=== PATIENT | female | born 1985 | race Hispanic/Latino ===

== ENCOUNTER 2016-10-11 18:10 | Inpatient (IN) | payer MEDICAID, OTHER ==
[2016-10-11] MEDS ORDERED: Morphine 4 mg/ml ISec IVP STA (18:47)
[2016-10-11] MEDS ORDERED: Piperacillin/Tazobact 3.375 gm 100 ML IVPB STA (18:47)
[2016-10-11] MEDS ORDERED: Vancomycin 500 mg Inj IVPB STA (18:47)
[2016-10-11] MEDS ORDERED: Vancomycin 1.2 GM in Sodium Chloride 0.9% 250 ML IVPB STA (18:54)
--- NOTE | 2016-10-11 18:57 | ED PDOC ---
Arrival/HPI - General Chief Complaint: Abnormal Skin Integrity Time Seen by Provider: 10/11/16 18:46 Historian: Patient - History of Present Illness Narrative History of Present Illness (Text): 10/11/16 18:39 A 31 year old female, whose past medical history includes asthma and heroine use (13 years), presents to the emergency department complaining of a skin infection to the right arm at the site of injection. Patient reports 4 days ago she notices some swelling and redness and it has worsen since. Patient states it is painful for her to move the right elbow due to the swelling. She denies a fever, chest pain, shortness of breath, or other complaints at this time. Time/Duration: Other (4 days) Symptom Onset: Gradual Symptom Course: Worsening Quality: Other Activities at Onset: Rest Context: Home Past Medical History - Provider Review Nursing Documentation Reviewed: Yes - Infectious Disease Hx of Infectious Diseases: None - Tetanus Immunization Tetanus Immunization: Up to Date - Past Medical History Past Medical History: No Previous - Cardiac Hx Cardiac Disorders: No Hx Hypertension: No - Pulmonary Hx Asthma: Yes Hx Tuberculosis: No - Neurological HX Cerebrovascular Accident: No Hx Seizures: No - HEENT Hx HEENT Disorder: No - Renal Hx Renal Disorder: No - Endocrine/Metabolic Hx Endocrine Disorders: No - Hematological/Oncological Hx Cancer: No Other/Comment: IV HEROIN USER - Integumentary Other/Comment: Abscess on both hands; scattered/multiple IV drug salas - Musculoskeletal/Rheumatological Hx Falls: No - Gastrointestinal Hx Gastrointestinal Disorders: No - Genitourinary/Gynecological Hx Sexually Transmitted Diseases: No Hx Urinary Tract Infection: Yes - Psychiatric Hx Anxiety: Yes Hx Depression: Yes Hx Substance Use: Yes (IV HEROIN) - Past Surgical History Past Surgical History: No Previous - Surgical History Other/Comment: biopsy lymph nodes - Anesthesia Hx Anesthesia: No Hx Anesthesia Reactions: No Hx Malignant Hyperthermia: No - Suicidal Assessment Feels Threatened In Home Enviroment: No Family/Social History - Physician Review Nursing Documentation Reviewed: Yes Family/Social History: Unknown Family HX Smoking Status: Heavy Smoker > 10 Cigarettes Daily Hx Alcohol Use: No Hx Substance Use: Yes (IV HEROIN) Substance used: HEROIN, COCAINE Hx Substance Use Treatment: No Allergies/Home Meds Allergies/Adverse Reactions: Allergies No Known Allergies Allergy (Verified 10/11/16 18:32) Home Medications: Home Meds Medication Instructions Recorded Confirmed No Known Home Med 10/11/16 10/11/16 Review of Systems - Physician Review All systems were reviewed & negative as marked: Yes - Review of Systems Constitutional: absent: Fevers Respiratory: absent: SOB Cardiovascular: absent: Chest Pain Gastrointestinal: absent: Nausea, Vomiting Musculoskeletal: Other (right upper extremity swelling and pain) Physical Exam Vital Signs Reviewed: Yes Vital Signs Temp Pulse Resp BP Pulse Ox 10/11/16 18:27 100 F H 120 H 18 124/69 98 Temperature: Febrile Blood Pressure: Normal Pulse: Tachycardic Respiratory Rate: Normal Appearance: Positive for: Well-Appearing, Non-Toxic, Comfortable Pain Distress: None Mental Status: Positive for: Alert and Oriented X 3 - Systems Exam Head: Present: Atraumatic, Normocephalic Pupils: Present: PERRL Extroacular Muscles: Present: EOMI Conjunctiva: Present: Normal Mouth: Present: Moist Mucous Membranes Neck: Present: Normal Range of Motion Respiratory/Chest: Present: Clear to Auscultation, Good Air Exchange. No: Respiratory Distress, Accessory Muscle Use Cardiovascular: Present: Regular Rate and Rhythm, Normal S1, S2. No: Murmurs Abdomen: Present: Normal Bowel Sounds. No: Tenderness, Distention, Peritoneal Signs Back: Present: Normal Inspection Upper Extremity: Present: Other (swelling and erythema over the right anterior and lateral upper extremity with maximum swelling just proximal to the elbow crease; limited range of motion secondary to pain but the elbow joint itself does not appear to be swollen). No: Cyanosis, Edema Lower Extremity: Present: Normal Inspection. No: Edema Neurological: Present: GCS=15, CN II-XII Intact, Speech Normal Skin: Present: Warm, Dry, Normal Color. No: Rashes Psychiatric: Present: Alert, Oriented x 3, Normal Insight, Normal Concentration Medical Decision Making ED Course and Treatment: 10/11/16 18:58 Case discussed with the resident programs assistant, who states he will come down to see the patient. Case discussed with Dr. Tamez, who states campus president will come down and see the patient. 10/11/16 19:20 resident programs assistant in emergency department evaluating the patient. He states to ordered an right upper extremity ultrasound. 10/11/16 20:[address] Barksdale, who is aware and agrees with the plan to admit the patient to Med/Surg under her services for cellulitis and abscess of the right arm. I have discussed the results and plan with the patient, who expresses understanding. Patient given the opportunity to ask question, all questions were answered and there is agreement with the plan to be admitted to the hospital. 10/11/16 20:36 US Right Upper Extremity Non-Vascular, Complete: Dictated and Authenticated by: Denise Rivera MD COMPARISON: There are no prior studies for comparison. FINDINGS: Soft tissues: There is a complex heterogeneous mass in the right antecubital space. Mass measures approximately 6.1 x 3.4 x 4.2 cm. There is peripheral/rim hyperemia. There are hyperemic septations within the mass. There is edema in the surrounding subcutaneous tissue. Edematous soft tissue is hyperemic. IMPRESSION: Complex inflammatory mass in the right antecubital region suggesting multiseptated abscess 10/11/16 2100 Surgery to take to OR for I&D tomorrow. - Lab Interpretations Lab Results: 10/11/16 19:10 10/11/16 19:10 Lab Results 10/11/16 19:10: WBC 13.8 H D, RBC 4.93, Hgb 14.6, Hct 41.5, MCV 84.2, MCH 29.6, MCHC 35.2, RDW 12.8, Plt Count 297, MPV 11.4 H, Gran % 82.0 H, Lymph % (Auto) 12.4 L, [place] % (Auto) 5.1, Eos % (Auto) 0.4 L, Baso % (Auto) 0.1, Gran # 11.29 H , Lymph # 1.7, [place] # 0.7 H, Eos # 0.1, Baso # 0.01 10/11/16 19:10: Sodium 138, Chloride 102, Potassium 3.8, Carbon Dioxide 24, Anion Gap 16, BUN 10, Creatinine 0.6, Est GFR ( Amer) > 60, Est GFR (Non- Af Amer) > 60, Random Glucose 112 H, Calcium 9.8, Total Bilirubin 1.6 H, AST 55 H, ALT 59 H, Alkaline Phosphatase 245 H, Total Protein 8.6 H, Albumin 4.5, Globulin 4.1, Albumin/Globulin Ratio 1.1 10/11/16 19:10: pO2 99 H, VBG pH 7.36, VBG pCO2 44.0, VBG HCO3 24.9, VBG Total CO2 26.3, VBG O2 Sat (Calc) 99.4 H, VBG Base Excess -0.9 L, VBG Potassium 3.9, Sodium 136.0, Chloride 105.0, Glucose 118 H, Lactate 0.9, FiO2 21.0, Venous Blood Potassium 3.9 I have reviewed the lab results: Yes - RAD Interpretation Radiology Orders: 10/11/16 19:20 EXTREMITY NON VASCULAR [US] Stat - Medication Orders Current Medication Orders: Acetaminophen (Tylenol 325mg Tab) 650 mg PO Q6H PRN PRN Reason: Fever >100.4 F Famotidine (Pepcid) 20 mg PO BID AUDIE Sodium Chloride (Sodium Chloride 0.9%) 1,000 mls @ 100 mls/hr IV .Q10H AUDIE Last Admin: 10/11/16 20:40 Dose: 100 mls/hr Piperacillin Sod/Tazobactam Sod (Zosyn 3.375 In Ns 100ml) 100 mls @ 200 mls/hr IVPB Q6 AUDIE PRN Reason: Protocol Stop: 10/12/16 06:29 Ibuprofen (Motrin Tab) 600 mg PO Q6H PRN PRN Reason: Pain, Mild (1-3) Levalbuterol HCl (Xopenex) 1.25 mg IH Q6H PRN PRN Reason: SOb Nicotine (Nicoderm Cq) 1 patch TD DAILY AUDIE Ondansetron HCl (Zofran Inj) 8 mg IVP Q6H PRN PRN Reason: Nausea/Vomiting Trazodone HCl (Desyrel) 50 mg PO HS AUDIE Vancomycin HCl (Vancomycin Inj) 1 gm IVPB Q24H AUDIE PRN Reason: Protocol Last Admin: 10/11/16 21:48 Dose: Discontinued Medications Piperacillin Sod/Tazobactam Sod (Zosyn 3.375 In Ns 100ml) 100 mls @ 200 mls/hr IVPB STAT STA PRN Reason: Protocol Stop: 10/11/16 19:16 Last Admin: 10/11/16 19:35 Dose: 200 mls/hr Vancomycin HCl 1.2 gm/ Sodium (Chloride) 250 mls @ 167 mls/hr IVPB STAT STA Stop: 10/11/16 20:23 Last Admin: 10/11/16 20:36 Dose: 167 mls/hr Sodium Chloride (Sodium Chloride 0.9%) 1,000 mls @ 999 mls/hr IV .Q1H1M STA Stop: 10/11/16 20:04 Last Admin: 10/11/16 19:40 Dose: 999 mls/hr Morphine Sulfate (Morphine) 4 mg IVP STAT STA Stop: 10/11/16 18:48 Last Admin: 10/11/16 19:35 Dose: 4 mg - Scribe Statement The provider has reviewed the documentation as recorded by the Jeevan Fernandez Provider Scribe Attestation: All medical record entries made by the Jeevan were at my direction and personally dictated by me. I have reviewed the chart and agree that the record accurately reflects my personal performance of the history, physical exam, medical decision making, and the department course for this patient. I have also personally directed, reviewed, and agree with the discharge instructions and disposition. Disposition/Present on Arrival - Present on Arrival Any Indicators Present on Arrival: No History of DVT/PE: No History of Uncontrolled Diabetes: No Urinary Catheter: No History of Decub. Ulcer: No History Surgical Site Infection Following: None - Disposition Have Diagnosis and Disposition been Completed?: Yes Diagnosis: Cellulitis, Abscess, IV drug abuse Disposition: HOSPITALIZED Disposition Time: 20:13 Patient Problems: Current Active Problems Problem Status Onset Cellulitis Acute Condition: STABLE
[2016-10-11] MEDS ORDERED: Sodium Chloride 0.9% 1,000 ML IV STA (19:04)
[2016-10-11 19:38] LABS: ADD MANUAL DIFF? NO
[2016-10-11 19:44] LABS: BASO # 0.01 K/mm3 (0.0-2.0); BASO % 0.1 % (0.0-3.0); EOS # 0.1 (0.0-0.7); EOS % 0.4 % (1.5-5.0); GRAN # 11.29 (1.4-6.5); HEMATOCRIT 41.5 % (36.0-48.0); LYMPH # 1.7 (1.2-3.4); LYMPH % 12.4 % (22.0-35.0); MEAN CELL VOLUME 84.2 fL (80.0-105.0); MEAN CORPUSCULAR HEMOGLOBIN 29.6 pg (25.0-35.0); MEAN CORPUSCULAR HGB CONC 35.2 g/dl (31.0-37.0); MEAN PLATELET VOLUME 11.4 fl (7.0-11.0); MONO # 0.7 (0.1-0.6); MONO % 5.1 % (1.0-6.0); PLATELET COUNT 297 10^3/uL (120.0-450.0); RED CELL DISTRIBUTION WIDTH 12.8 % (11.5-14.5); VENOUS BLOOD GAS BASE EXCESS -0.9 mmol/L (0.0-2.0); VENOUS BLOOD PH 7.36 (7.32-7.43); WHITE BLOOD COUNT 13.8 10^3/ul (4.5-11.0)
--- NOTE | 2016-10-11 19:50 | CP.PCM.CON ---
History of Present Illness - History of Present Illness History of Present Illness: General Surgery Consult Re: R UE abscess HPI: 31F presented to ED C/O increasing pain and swelling in her RUE x 1 week. Elbow is painful to move and her antecubital fossa is very tender. She is an IV heroin user and injected at the site a little over 1 week ago. She has had similar infections at other injection sites in the past. Denies F/C, N/V/D, SOB , chest pain, abd pain, night sweats. No other C/O. PMH: Asthma, Anemia, Anxiety, Depression PSH: Lymph node biopsy SH: IV drug use, Heavy smoker, social EtOH All: NKDA Meds: Denies Review of Systems - Review of Systems All systems: reviewed and no additional remarkable complaints except (as per HPI ) Past Patient History - Infectious Disease Hx of Infectious Diseases: None - Tetanus Immunizations Tetanus Immunization: Up to Date - Past Medical History & Family History Past Medical History?: Yes - Past Social History Smoking Status: Heavy Smoker > 10 Cigarettes Daily - CARDIAC Hx Cardiac Disorders: No Hx Hypertension: No - PULMONARY Hx Asthma: Yes Hx Tuberculosis: No - NEUROLOGICAL HX Cerebrovascular Accident: No Hx Seizures: No - HEENT Hx HEENT Problems: No - RENAL Hx Chronic Kidney Disease: No - ENDOCRINE/METABOLIC Hx Endocrine Disorders: No - HEMATOLOGICAL/ONCOLOGICAL Hx Cancer: No Other/Comment: IV HEROIN USER - INTEGUMENTARY Other/Comment: Abscess on both hands; scattered/multiple IV drug salas - MUSCULOSKELETAL/RHEUMATOLOGICAL Hx Falls: No - GASTROINTESTINAL Hx Gastrointestinal Disorders: No - GENITOURINARY/GYNECOLOGICAL Hx Sexually Transmitted Disorders: No Hx Urinary Tract Infection: Yes - PSYCHIATRIC Hx Anxiety: Yes Hx Depression: Yes Hx Substance Use: Yes (IV HEROIN) - SURGICAL HISTORY Other/Comment: biopsy lymph nodes - ANESTHESIA Hx Anesthesia: No Hx Anesthesia Reactions: No Hx Malignant Hyperthermia: No Meds Allergies/Adverse Reactions: Allergies Allergy/AdvReac Type Severity Reaction Status Date / Time No Known Allergies Allergy Verified 10/11/16 18:32 - Medications Medications: Current Medications Vancomycin HCl 1.2 gm/ Sodium (Chloride) 250 mls @ 167 mls/hr IVPB STAT STA Stop: 10/11/16 20:23 Sodium Chloride (Sodium Chloride 0.9%) 1,000 mls @ 999 mls/hr IV .Q1H1M STA Stop: 10/11/16 20:04 Physical Exam - Constitutional Appears: Non-toxic, No Acute Distress - Head Exam Head Exam: ATRAUMATIC, NORMOCEPHALIC - Eye Exam Eye Exam: EOMI. absent: Scleral icterus - ENT Exam ENT Exam: Mucous Membranes Moist Additional comments: missing front upper teeth - Neck Exam Neck exam: Positive for: Full Rom Additional comments: trachea midline - Respiratory Exam Respiratory Exam: NORMAL BREATHING PATTERN. absent: Respiratory Distress - Cardiovascular Exam Cardiovascular Exam: Tachycardia, +S1, +S2 - GI/Abdominal Exam GI & Abdominal Exam: Soft. absent: Distended, Tenderness - Rectal Exam Rectal Exam: Deferred - Extremities Exam Extremities exam: Positive for: tenderness (over antecubital fossa). Negative for: pedal edema Additional comments: R elbow/UE with area of erythema ~ 12 cm in diameter, central area with several small white areas. Antecubital fossa edematous and TTP Full ROM of R arm and hand except for extension and flexion at the elbow 2/2 pain - Neurological Exam Neurological exam: Alert, Oriented x3 - Psychiatric Exam Psychiatric exam: Normal Affect, Normal Mood - Skin Skin Exam: Dry, Warm Results - Vital Signs Recent Vital Signs: Last Vital Signs Temp 100 F H 10/11/16 18:27 Pulse 120 H 10/11/16 18:27 Resp 18 10/11/16 18:27 BP 124/69 10/11/16 18:27 Pulse Ox 98 10/11/16 18:27 - Imaging and Cardiology US - RUE Status: Pending Assessment & Plan - Assessment and Plan (Free Text) Assessment: 31F with RUE cellulitis and abscess Plan: F/U US read, depending on depth of abscess and involvement of other structures, will drain at bedside vs OR. Continue IV abx Warm compress to site Analgesia La D/W Dr. Dashawn Mirza PGY3
[2016-10-11 19:57] LABS: ALB/GLOB RATIO 1.1 (1.1-1.8); ALKALINE PHOSPHATASE 245 U/L (38-133); ALT/SGPT 59 U/L (7-56); AST/SGOT 55 U/L (15-39); BILIRUBIN,TOTAL 1.6 mg/dL (0.2-1.3); BLOOD UREA NITROGEN 10 mg/dL (7-21); CALCIUM 9.8 mg/dL (8.4-10.5); CARBON DIOXIDE 24 mmol/L (21-33); CHLORIDE 102 mmol/L (98-107); GFR AFRICAN-AMERICAN > 60; GLUCOSE,RANDOM 112 mg/dL (70-110); POTASSIUM 3.8 mmol/L (3.6-5.0); SODIUM 138 mmol/L (132-148); TOTAL PROTEIN 8.6 g/dL (5.8-8.3)
[2016-10-11] MEDS ORDERED: Sodium Chloride 0.9% 1,000 ML IV SCH (20:15)
[2016-10-11] MEDS ORDERED: Levalbuterol 1.25 MG/3 ML Inhal Soln UD IH PRN (20:28)
[2016-10-11] MEDS ORDERED: Vancomycin 1 g Inj IVPB SCH (20:30)
--- NOTE | 2016-10-11 20:30 | CP.PCM.HP ---
<AshleyJohnathanpedritoBernardino gonzalez - Last Filed: 10/11/16 23:49> History of Present Illness - History of Present Illness History of Present Illness: This is a 31yo F w/ a PMhx of of heroin abuse, IV only, 10-20 bags per day states her boyfriend sells and that is how she has access and "pays" for it, and asthma mild intermittent never been intubated, who is coming in for a 5d history of R antecubital pain at the site she normally injects heroin. She states the pain and swelling got so bad she decided to come in. She is denying FERRELL, CP, SOB, abdominal pain, N/V/D, dysuria/freq/urg, or lower extremity pain. PMhx: heroin abuse, depression, asthma Surgical history: previous InD for abscesses from heroin FamHx: Mother and grandmother with breast ca Allergy: denies Social: not working, denies EtOH, admits to heroin use daily 10-20 bags, has no wish to stop or go to rehab Meds: ventolin inhaler Present on Admission - Present on Admission Any Indicators Present on Admission: No History of DVT/PE: No History of Uncontrolled Diabetes: No Urinary Catheter: No Decubitus Ulcer Present: No Past Patient History - Infectious Disease Hx of Infectious Diseases: None - Tetanus Immunizations Tetanus Immunization: Up to Date - Past Medical History & Family History Past Medical History?: Yes - Past Social History Smoking Status: Heavy Smoker > 10 Cigarettes Daily - CARDIAC Hx Cardiac Disorders: No Hx Hypertension: No - PULMONARY Hx Asthma: Yes Hx Tuberculosis: No - NEUROLOGICAL HX Cerebrovascular Accident: No Hx Seizures: No - HEENT Hx HEENT Problems: No - RENAL Hx Chronic Kidney Disease: No - ENDOCRINE/METABOLIC Hx Endocrine Disorders: No - HEMATOLOGICAL/ONCOLOGICAL Hx Cancer: No Other/Comment: IV HEROIN USER - INTEGUMENTARY Other/Comment: Abscess on both hands; scattered/multiple IV drug salas - MUSCULOSKELETAL/RHEUMATOLOGICAL Hx Falls: No - GASTROINTESTINAL Hx Gastrointestinal Disorders: No - GENITOURINARY/GYNECOLOGICAL Hx Sexually Transmitted Disorders: No Hx Urinary Tract Infection: Yes - PSYCHIATRIC Hx Anxiety: Yes Hx Depression: Yes Hx Substance Use: Yes (IV HEROIN) - SURGICAL HISTORY Other/Comment: biopsy lymph nodes - ANESTHESIA Hx Anesthesia: No Hx Anesthesia Reactions: No Hx Malignant Hyperthermia: No Meds Allergies/Adverse Reactions: Allergies Allergy/AdvReac Type Severity Reaction Status Date / Time No Known Allergies Allergy Verified 10/11/16 18:32 Physical Exam - Constitutional Appears: Non-toxic Additional comments: restless, standing up and pacing, in no acute distress, visible track salas all over arms - Head Exam Head Exam: ATRAUMATIC - Eye Exam Eye Exam: EOMI, Normal appearance Pupil Exam: NORMAL ACCOMODATION - ENT Exam ENT Exam: Mucous Membranes Moist - Neck Exam Neck exam: Positive for: Full Rom. Negative for: Lymphadenopathy - Respiratory Exam Respiratory Exam: Clear to Auscultation Bilateral, NORMAL BREATHING PATTERN. absent: Rales, Rhonchi - Cardiovascular Exam Cardiovascular Exam: REGULAR RHYTHM, +S1, +S2, Systolic Murmur - GI/Abdominal Exam GI & Abdominal Exam: Normal Bowel Sounds, Soft. absent: Tenderness - Rectal Exam Rectal Exam: Deferred - Extremities Exam Extremities exam: Positive for: full ROM. Negative for: calf tenderness Additional comments: Visible and obvious abscess on the R arm in the antecubital fossa, indurated and fluctuant; painful and hot - Back Exam Back exam: NORMAL INSPECTION. absent: CVA tenderness (L), CVA tenderness (R) - Neurological Exam Neurological exam: Alert, Oriented x3 - Psychiatric Exam Psychiatric exam: Normal Affect - Skin Skin Exam: Warm Results - Vital Signs Recent Vital Signs: Last Vital Signs Temp 100 F H 10/11/16 18:27 Pulse 120 H 10/11/16 18:27 Resp 18 10/11/16 18:27 BP 124/69 10/11/16 18:27 Pulse Ox 98 10/11/16 18:27 - Labs Result Diagrams: 10/11/16 19:10 10/11/16 19:10 Labs: Laboratory Results - last 24 hr 10/11/16 10/11/16 10/11/16 19:10 19:10 19:10 WBC 13.8 H D RBC 4.93 Hgb 14.6 Hct 41.5 MCV 84.2 MCH 29.6 MCHC 35.2 RDW 12.8 Plt Count 297 MPV 11.4 H Gran % 82.0 H Lymph % (Auto) 12.4 L [place] % (Auto) 5.1 Eos % (Auto) 0.4 L Baso % (Auto) 0.1 Gran # 11.29 H Lymph # 1.7 [place] # 0.7 H Eos # 0.1 Baso # 0.01 pO2 99 H VBG pH 7.36 VBG pCO2 44.0 VBG HCO3 24.9 VBG Total CO2 26.3 VBG O2 Sat (Calc) 99.4 H VBG Base Excess -0.9 L VBG Potassium 3.9 Sodium 136.0 138 Chloride 105.0 102 Glucose 118 H Lactate 0.9 FiO2 21.0 Potassium 3.8 Carbon Dioxide 24 Anion Gap 16 BUN 10 Creatinine 0.6 Est GFR ( Amer) > 60 Est GFR (Non-Af Amer) > 60 Random Glucose 112 H Calcium 9.8 Total Bilirubin 1.6 H AST 55 H ALT 59 H Alkaline Phosphatase 245 H Total Protein 8.6 H Albumin 4.5 Globulin 4.1 Albumin/Globulin Ratio 1.1 Venous Blood Potassium 3.9 Assessment & Plan - Assessment and Plan (Free Text) Assessment: This is a 31yo F admitted for Sepsis 2/2 to Cellulitis/Abscess Sepsis 2/2 to Cellulitis/Abscess -WBC 13.8, tachycardic 100, obvious sign of infection on arm, lactate WNL -Fluids given, blood cultures taken, broad spectrum antiobiotics given vanc/ zosyn -ID consult for antibiotic approval -echo ordered for heart murmur -appreciate surgery recs; patient is for OR tomorrow for drainage Possible bacterial endocarditis -echo ordered; if inconclusive will do BUFFY -antibiotics started -ID on consult; Dr. Fleming -pending blood cultures Heroin Abuse -patient has no wish to stop for now -pending hep panel, HIV, RPR; last year was negative Asthma; mild intermittent not in exacerbation -Xopenex PRN Proph -SCD -Pepcid -NPO for now pending surgery decision Case discussed and seen with Dr. Gaston Woods PGY1 Night Float Decision To Admit - Pt Status Changed To: Hospital Disposition Of: Inpatient Admission - Admit Certification Admit to Inpatient:: After my assessment, the patient will require hospitalization for at least two midnights. This is because of the severity of symptoms shown, intensity of services needed, and/or the medical risk in this patient being treated as an outpatient. - . Bed Request Type: Med/Surg Admitting Physician: Amelie Feldman <Amelie Feldman - Last Filed: 10/12/16 01:43> Results - Vital Signs Recent Vital Signs: Last Vital Signs Temp 100 F H 10/11/16 18:27 Pulse 120 H 10/11/16 18:27 Resp 18 10/11/16 18:27 BP 124/69 10/11/16 18:27 Pulse Ox 98 10/11/16 18:27 - Labs Result Diagrams: 10/11/16 19:10 10/11/16 19:10 Labs: Laboratory Results - last 24 hr 10/11/16 21:09 Urine Color Dark yellow Urine Appearance Sl cloudy Urine pH 6.0 Ur Specific [place] >= 1.030 Urine Protein 30 H Urine Glucose (UA) Negative Urine Ketones 15 H Urine Blood Trace-intact H Urine Nitrate Positive H Urine Bilirubin Moderate H Urine Urobilinogen 4.0 H Ur Leukocyte Esterase Moderate H Urine RBC 5 - 10 Urine WBC 10 - 15 Ur Epithelial Cells 4 - 5 Urine Bacteria Mod Urine Other Fiber Urine HCG, Qual Negative Attending/Attestation - Attestation I have personally seen and examined this patient.: Yes I have fully participated in the care of the patient.: Yes I have reviewed all pertinent clinical information: Yes Notes (Text): 10/12/16 01:41 Patient was seen when she was in the ER in room # 11. Agree with history, physical examination ,assessmend and plan.
--- NOTE | 2016-10-11 20:32 | US ---
EXAM: US Right Upper Extremity Non-Vascular, Complete CLINICAL HISTORY: 31 years old, female; Pain; Upper arm; Right; Additional info: Right arm eval for abscess TECHNIQUE: Real-time ultrasound scan of the right upper extremity with image documentation. EXAM DATE/TIME: 10/11/2016 7:20 PM COMPARISON: There are no prior studies for comparison. FINDINGS: Soft tissues: There is a complex heterogeneous mass in the right antecubital space. Mass measures approximately 6.1 x 3.4 x 4.2 cm. There is peripheral/rim hyperemia. There are hyperemic septations within the mass. There is edema in the surrounding subcutaneous tissue. Edematous soft tissue is hyperemic. IMPRESSION: Complex inflammatory mass in the right antecubital region suggesting multiseptated abscess
[2016-10-11 21:38] LABS: URINE BILIRUBIN MODERATE (NEGATIVE); URINE BLOOD TRACE-INTACT (NEGATIVE); URINE GLUCOSE (UA) NEGATIVE (NEGATIVE); URINE KETONE 15 mg/dL (NEGATIVE); URINE LEUKOCYTE ESTERASE MODERATE Leu/uL (NEGATIVE); URINE PROTEIN 30 mg/dL (<30 mg/dL)
[2016-10-11 21:43] LABS: URINE APPEARANCE SL CLOUDY (CLEAR); URINE COLOR DARK YELLOW (YELLOW)
[2016-10-11 22:04] LABS: URINE BACTERIA MOD (NEG)
[2016-10-11] MEDS: Morphine 4 mg/ml ISec IVP PRN (23:52)
[2016-10-12] MEDS: Piperacillin/Tazobact 3.375 gm 100 ML IVPB SCH ×2 (00:28→05:17)
[2016-10-12 01:43] VITALS: BMI 28.6
[2016-10-12] MEDS: Morphine 4 mg/ml ISec IVP PRN (06:05)
[2016-10-12 07:20] LABS: ADD MANUAL DIFF? NO
[2016-10-12 07:23] LABS: BASO # 0.03 K/mm3 (0.0-2.0); BASO % 0.3 % (0.0-3.0); EOS # 0.2 (0.0-0.7); GRAN # 7.82 (1.4-6.5); GRAN % 76.2 % (50.0-68.0); HEMATOCRIT 33.3 % (36.0-48.0); LYMPH # 1.3 (1.2-3.4); LYMPH % 12.7 % (22.0-35.0); MEAN CELL VOLUME 84.7 fL (80.0-105.0); MEAN CORPUSCULAR HEMOGLOBIN 28.5 pg (25.0-35.0); MEAN CORPUSCULAR HGB CONC 33.6 g/dl (31.0-37.0); MONO # 0.9 (0.1-0.6); MONO % 8.8 % (1.0-6.0); PLATELET COUNT 208 10^3/uL (120.0-450.0); RED CELL DISTRIBUTION WIDTH 12.9 % (11.5-14.5); WHITE BLOOD COUNT 10.3 10^3/ul (4.5-11.0)
[2016-10-12 07:50] LABS: ALKALINE PHOSPHATASE 182 U/L (38-133); ALT/SGPT 44 U/L (7-56); AST/SGOT 32 U/L (15-39); BILIRUBIN,TOTAL 1.7 mg/dL (0.2-1.3); BLOOD UREA NITROGEN 8 mg/dL (7-21); CALCIUM 8.5 mg/dL (8.4-10.5); CARBON DIOXIDE 20 mmol/L (21-33); CHLORIDE 110 mmol/L (98-107); GFR AFRICAN-AMERICAN > 60; GLUCOSE,RANDOM 91 mg/dL (70-110); POTASSIUM 3.3 mmol/L (3.6-5.0); SODIUM 137 mmol/L (132-148)
[2016-10-12 08:48] VITALS: RESP 18
[2016-10-12] MEDS ORDERED: Bupivacaine 0.5% Inj(30mL) ONE (08:55)
[2016-10-12] MEDS ORDERED: Lidocaine 1% Inj (20ml) ONE ×2 (08:55→09:48)
[2016-10-12] MEDS ORDERED: Lactated Ringer's 1,000 ML IV SCH (09:11)
--- NOTE | 2016-10-12 09:12 | RAD ---
HISTORY: SOb COMPARISON: 11/19/2015 FINDINGS: LUNGS: No active pulmonary disease. PLEURA: No significant pleural effusion identified, no pneumothorax apparent. CARDIOVASCULAR: Normal. OSSEOUS STRUCTURES: No significant abnormalities. VISUALIZED UPPER ABDOMEN: Normal. OTHER FINDINGS: None. IMPRESSION: No active disease.
[2016-10-12] MEDS ORDERED: Propofol 10 mg/ml Inj (20 ML) ONE (09:48)
[2016-10-12] MEDS ORDERED: Vancomycin 1 g Inj IVPB SCH (10:00)
[2016-10-12] MEDS ORDERED: Vancomycin 1gm in NS 250ml 1 GM/250 ML BAG IVPB SCH (10:00)
--- NOTE | 2016-10-12 10:34 | PCM.SURG1 ---
Surgeon's Initial Post Op Note - Surgeon's Notes Surgeon: Dr. Tamez [place] Alderman: Dr. Dillard Type of Anesthesia: General Mask Pre-Operative Diagnosis: Right Anticubital Fossa Abscess Operative Findings: blood tinged purulent fluid Post-Operative Diagnosis: same Operation Performed: drainage and blunt debridement of right antecubital fossa abscess Specimen/Specimens Removed: none Estimated Blood Loss: EBL {In ML}: 5 Blood Products Given: N/A Drains Used: No Drains Post-Op Condition: Good Date of Surgery/Procedure: 10/12/16 Time of Surgery/Procedure: 10:34
[2016-10-12] MEDS ORDERED: HYDROmorphone 0.5 mg/0.5 ml ISec IVP PRN (10:36)
[2016-10-12 10:41] VITALS: TEMP 97.7
[2016-10-12 11:18] VITALS: BP 127/73; O2SAT 99
[2016-10-12 11:29] VITALS: PULSE 59
[2016-10-12] MEDS ORDERED: Potassium Chloride 20 mEq ER Tab PO ONE (12:08)
--- NOTE | 2016-10-12 12:19 | CP.PCM.DIS ---
<Jakob Dillon - Last Filed: 10/12/16 12:31> Provider - Provider Date of Admission: 10/11/16 20:13 Attending physician: Chon Barksdale MD Primary care physician: NO PRIMARY CARE PROVIDER Consults: Ivan Tamez Time Spent in preparation of Discharge (in minutes): 45 Hospital Course - Lab Results Lab Results: Most Recent Lab Values WBC 10.3 10^3/ul (4.5-11.0) D 10/12/16 07:00 RBC 3.93 10^6/uL (3.5-6.1) 10/12/16 07:00 Hgb 11.2 gm/dL (12.0-16.0) L 10/12/16 07:00 Hct 33.3 % (36.0-48.0) L 10/12/16 07:00 MCV 84.7 fL (80.0-105.0) 10/12/16 07:00 MCH 28.5 pg (25.0-35.0) 10/12/16 07:00 MCHC 33.6 g/dl (31.0-37.0) 10/12/16 07:00 RDW 12.9 % (11.5-14.5) 10/12/16 07:00 Plt Count 208 10^3/uL (120.0-450.0) 10/12/16 07:00 MPV 11.0 fl (7.0-11.0) 10/12/16 07:00 Gran % 76.2 % (50.0-68.0) H 10/12/16 07:00 Lymph % (Auto) 12.7 % (22.0-35.0) L 10/12/16 07:00 [place] % (Auto) 8.8 % (1.0-6.0) H 10/12/16 07:00 Eos % (Auto) 2.0 % (1.5-5.0) 10/12/16 07:00 Baso % (Auto) 0.3 % (0.0-3.0) 10/12/16 07:00 Gran # 7.82 (1.4-6.5) H 10/12/16 07:00 Lymph # 1.3 (1.2-3.4) 10/12/16 07:00 [place] # 0.9 (0.1-0.6) H 10/12/16 07:00 Eos # 0.2 (0.0-0.7) 10/12/16 07:00 Baso # 0.03 K/mm3 (0.0-2.0) 10/12/16 07:00 pO2 99 mm/Hg (30-55) H 10/11/16 19:10 VBG pH 7.36 (7.32-7.43) 10/11/16 19:10 VBG pCO2 44.0 (40-60) 10/11/16 19:10 VBG HCO3 24.9 mmol/l (21-28) 10/11/16 19:10 VBG Total CO2 26.3 mmol.L (22-28) 10/11/16 19:10 VBG O2 Sat (Calc) 99.4 % (40-65) H 10/11/16 19:10 VBG Base Excess -0.9 mmol/L (0.0-2.0) L 10/11/16 19:10 VBG Potassium 3.9 mmol/L (3.6-5.2) 10/11/16 19:10 Sodium 136.0 mmol/L (132-148) 10/11/16 19:10 Chloride 105.0 mmol/L (98-107) 10/11/16 19:10 Glucose 118 mg/dl (65-105) H 10/11/16 19:10 Lactate 0.9 mmol/L (0.7-2.1) 10/11/16 19:10 FiO2 21.0 % 10/11/16 19:10 Sodium 137 mmol/L (132-148) 10/12/16 07:00 Potassium 3.3 mmol/L (3.6-5.0) L 10/12/16 07:00 Chloride 110 mmol/L (98-107) H 10/12/16 07:00 Carbon Dioxide 20 mmol/L (21-33) L 10/12/16 07:00 Anion Gap 10 (10-20) 10/12/16 07:00 BUN 8 mg/dL (7-21) 10/12/16 07:00 Creatinine 0.6 mg/dL (0.5-1.4) 10/12/16 07:00 Est GFR ( Amer) > 60 10/12/16 07:00 Est GFR (Non-Af Amer) > 60 10/12/16 07:00 Random Glucose 91 mg/dL (70-110) 10/12/16 07:00 Calcium 8.5 mg/dL (8.4-10.5) 10/12/16 07:00 Total Bilirubin 1.7 mg/dL (0.2-1.3) H 10/12/16 07:00 AST 32 U/L (15-39) 10/12/16 07:00 ALT 44 U/L (7-56) 10/12/16 07:00 Alkaline Phosphatase 182 U/L (38-133) H 10/12/16 07:00 Total Protein 6.0 g/dL (5.8-8.3) 10/12/16 07:00 Albumin 3.0 g/dL (3.0-4.8) 10/12/16 07:00 Globulin 3.0 gm/dL 10/12/16 07:00 Albumin/Globulin Ratio 1.0 (1.1-1.8) L 10/12/16 07:00 Venous Blood Potassium 3.9 mmol/L (3.6-5.2) 10/11/16 19:10 Urine Color Dark yellow (YELLOW) 10/11/16 21:09 Urine Appearance Sl cloudy (CLEAR) 10/11/16 21:09 Urine pH 6.0 (4.7-8.0) 10/11/16 21:09 Ur Specific [employer] >= 1.030 (1.005-1.035) 10/11/16 21:09 Urine Protein 30 mg/dL (<30 mg/dL) H 10/11/16 21:09 Urine Glucose (UA) Negative mg/dL (NEGATIVE) 10/11/16 21:09 Urine Ketones 15 mg/dL (NEGATIVE) H 10/11/16 21:09 Urine Blood Trace-intact (NEGATIVE) H 10/11/16 21:09 Urine Nitrate Positive (NEGATIVE) H 10/11/16 21:09 Urine Bilirubin Moderate (NEGATIVE) H 10/11/16 21:09 Urine Urobilinogen 4.0 E.U./dL (<1 E.U./dL) H 10/11/16 21:09 Ur Leukocyte Esterase Moderate Renita/uL (NEGATIVE) H 10/11/16 21:09 Urine RBC 5 - 10 /hpf (0-2) 10/11/16 21:09 Urine WBC 10 - 15 /hpf (0-6) 10/11/16 21:09 Ur Epithelial Cells 4 - 5 /hpf (0-5) 10/11/16 21:09 Urine Bacteria Mod (NEG) 10/11/16 21:09 Urine Other Fiber 10/11/16 21:09 Urine HCG, Qual Negative (NEGATIVE) 10/11/16 21:09 Urine Opiates Screen Positive (NEGATIVE) H 10/12/16 00:15 Urine Methadone Screen Negative (NEGATIVE) 10/12/16 00:15 Ur Barbiturates Screen Negative (NEGATIVE) 10/12/16 00:15 Ur Phencyclidine Scrn Negative (NEGATIVE) 10/12/16 00:15 Ur Amphetamines Screen Negative (NEGATIVE) 10/12/16 00:15 U Benzodiazepines Scrn Negative (NEGATIVE) 10/12/16 00:15 U Oth Cocaine Metabols Negative (NEGATIVE) 10/12/16 00:15 U Cannabinoids Screen Negative (NEGATIVE) 10/12/16 00:15 Alcohol, Quantitative < 10 mg/dL (0-10) 10/12/16 07:00 - Hospital Course Hospital Course: Admit date- 10/11 AMA 10/12 Attending: Dr. Barksdale Discharge dx 1. Abscess/cellulitis 2. Heroin abuse 3. Asthma HPI: see h/p Labs : see lab data Procedures: I/D Post op day 0 no complications Consults Surgery- [facility] course This is a 31 year old F w/ a PMhx of of heroin abuse, IV only, 10-20 bags per day states her boyfriend sells and that is how she has access and "pays" for it , and asthma mild intermittent never been intubated, who is coming in for a 5d history of R antecubital pain at the site she normally injects heroin. She states the pain and swelling got so bad she decided to come in. She is denying FERRELL, CP, SOB, abdominal pain, N/V/D, dysuria/freq/urg, or lower extremity pain. Sepsis 2/2 to Cellulitis/Abscess -WBC 13.8, tachycardic 100, obvious sign of infection on arm, lactate WNL on admission -Fluids given, blood cultures taken, broad spectrum antiobiotics given vanc/ zosyn -ID consult for antibiotic approval -echo ordered for heart murmur -appreciate surgery recs; patient is s/p OR for I/D Possible bacterial endocarditis -echo ordered; if inconclusive will do BUFFY -antibiotics started -ID on consult; Dr. Faust -pending blood cultures Heroin Abuse -patient has no wish to stop for now -pending hep panel, HIV, RPR; last year was negative Asthma; mild intermittent not in exacerbation -Xopenex PRN Proph -SCD -Pepcid DC instructions Please return if condition worsens. Pt was AO x 3, was encouraged to stay but left AMA. Pt counseled on drug cessation. Told to stop abusing drugs, apply warm compresses, elevate arm, see sx as needed. DC meds Augmentin Doxycycline Pt left AMA - Date & Time of H&P Date of H&P: 10/11/16 Time of H&P: 20:27 Discharge Exam - Head Exam Head Exam: ATRAUMATIC, NORMAL INSPECTION, NORMOCEPHALIC - Eye Exam Eye Exam: EOMI - ENT Exam ENT Exam: Mucous Membranes Moist - Neck Exam Neck exam: Full Rom, Normal Inspection - Respiratory Exam Respiratory Exam: NORMAL BREATHING PATTERN - Cardiovascular Exam Cardiovascular Exam: +S1, +S2 - GI/Abdominal Exam GI & Abdominal Exam: Normal Bowel Sounds - Extremities Exam Additional comments: Cellulitis and abscess right antecubital fossa, track salas b/l upper extremities - Neurological Exam Neurological exam: Alert, Oriented x3 - Psychiatric Exam Psychiatric exam: Normal Affect, Normal Mood - Skin Skin Exam: Dry, Intact, Normal Color, Warm Discharge Plan - Discharge Medications Prescriptions: Amoxicillin/Clavulanate [Augmentin 875 MG-125 MG] 1 tab PO BID #14 tab Doxycycline Hyclate 100 mg PO BID #14 capsule - Follow Up Plan Condition: STABLE Disposition: AGAINST MEDICAL ADVICE Instructions: Cellulitis (ED) Referrals: PCP,NO [Primary Care Provider] - <Chon Barksdale - Last Filed: 10/12/16 16:40> Provider - Provider Date of Admission: 10/11/16 20:13 Attending physician: Chon Barksdale MD Primary care physician: NO PRIMARY CARE PROVIDER Hospital Course - Lab Results Lab Results: Most Recent Lab Values WBC 10.3 10^3/ul (4.5-11.0) D 10/12/16 07:00 RBC 3.93 10^6/uL (3.5-6.1) 10/12/16 07:00 Hgb 11.2 gm/dL (12.0-16.0) L 10/12/16 07:00 Hct 33.3 % (36.0-48.0) L 10/12/16 07:00 MCV 84.7 fL (80.0-105.0) 10/12/16 07:00 MCH 28.5 pg (25.0-35.0) 10/12/16 07:00 MCHC 33.6 g/dl (31.0-37.0) 10/12/16 07:00 RDW 12.9 % (11.5-14.5) 10/12/16 07:00 Plt Count 208 10^3/uL (120.0-450.0) 10/12/16 07:00 MPV 11.0 fl (7.0-11.0) 10/12/16 07:00 Gran % 76.2 % (50.0-68.0) H 10/12/16 07:00 Lymph % (Auto) 12.7 % (22.0-35.0) L 10/12/16 07:00 [place] % (Auto) 8.8 % (1.0-6.0) H 10/12/16 07:00 Eos % (Auto) 2.0 % (1.5-5.0) 10/12/16 07:00 Baso % (Auto) 0.3 % (0.0-3.0) 10/12/16 07:00 Gran # 7.82 (1.4-6.5) H 10/12/16 07:00 Lymph # 1.3 (1.2-3.4) 10/12/16 07:00 [place] # 0.9 (0.1-0.6) H 10/12/16 07:00 Eos # 0.2 (0.0-0.7) 10/12/16 07:00 Baso # 0.03 K/mm3 (0.0-2.0) 10/12/16 07:00 pO2 99 mm/Hg (30-55) H 10/11/16 19:10 VBG pH 7.36 (7.32-7.43) 10/11/16 19:10 VBG pCO2 44.0 (40-60) 10/11/16 19:10 VBG HCO3 24.9 mmol/l (21-28) 10/11/16 19:10 VBG Total CO2 26.3 mmol.L (22-28) 10/11/16 19:10 VBG O2 Sat (Calc) 99.4 % (40-65) H 10/11/16 19:10 VBG Base Excess -0.9 mmol/L (0.0-2.0) L 10/11/16 19:10 VBG Potassium 3.9 mmol/L (3.6-5.2) 10/11/16 19:10 Sodium 136.0 mmol/L (132-148) 10/11/16 19:10 Chloride 105.0 mmol/L (98-107) 10/11/16 19:10 Glucose 118 mg/dl (65-105) H 10/11/16 19:10 Lactate 0.9 mmol/L (0.7-2.1) 10/11/16 19:10 FiO2 21.0 % 10/11/16 19:10 Sodium 137 mmol/L (132-148) 10/12/16 07:00 Potassium 3.3 mmol/L (3.6-5.0) L 10/12/16 07:00 Chloride 110 mmol/L (98-107) H 10/12/16 07:00 Carbon Dioxide 20 mmol/L (21-33) L 10/12/16 07:00 Anion Gap 10 (10-20) 10/12/16 07:00 BUN 8 mg/dL (7-21) 10/12/16 07:00 Creatinine 0.6 mg/dL (0.5-1.4) 10/12/16 07:00 Est GFR ( Amer) > 60 10/12/16 07:00 Est GFR (Non-Af Amer) > 60 10/12/16 07:00 Random Glucose 91 mg/dL (70-110) 10/12/16 07:00 Calcium 8.5 mg/dL (8.4-10.5) 10/12/16 07:00 Total Bilirubin 1.7 mg/dL (0.2-1.3) H 10/12/16 07:00 AST 32 U/L (15-39) 10/12/16 07:00 ALT 44 U/L (7-56) 10/12/16 07:00 Alkaline Phosphatase 182 U/L (38-133) H 10/12/16 07:00 Total Protein 6.0 g/dL (5.8-8.3) 10/12/16 07:00 Albumin 3.0 g/dL (3.0-4.8) 10/12/16 07:00 Globulin 3.0 gm/dL 10/12/16 07:00 Albumin/Globulin Ratio 1.0 (1.1-1.8) L 10/12/16 07:00 Venous Blood Potassium 3.9 mmol/L (3.6-5.2) 10/11/16 19:10 Urine Color Dark yellow (YELLOW) 10/11/16 21:09 Urine Appearance Sl cloudy (CLEAR) 10/11/16 21:09 Urine pH 6.0 (4.7-8.0) 10/11/16 21:09 Ur Specific [employer] >= 1.030 (1.005-1.035) 10/11/16 21:09 Urine Protein 30 mg/dL (<30 mg/dL) H 10/11/16 21:09 Urine Glucose (UA) Negative mg/dL (NEGATIVE) 10/11/16 21:09 Urine Ketones 15 mg/dL (NEGATIVE) H 10/11/16 21:09 Urine Blood Trace-intact (NEGATIVE) H 10/11/16 21:09 Urine Nitrate Positive (NEGATIVE) H 10/11/16 21:09 Urine Bilirubin Moderate (NEGATIVE) H 10/11/16 21:09 Urine Urobilinogen 4.0 E.U./dL (<1 E.U./dL) H 10/11/16 21:09 Ur Leukocyte Esterase Moderate [place]/uL (NEGATIVE) H 10/11/16 21:09 Urine RBC 5 - 10 /hpf (0-2) 10/11/16 21:09 Urine WBC 10 - 15 /hpf (0-6) 10/11/16 21:09 Ur Epithelial Cells 4 - 5 /hpf (0-5) 10/11/16 21:09 Urine Bacteria Mod (NEG) 10/11/16 21:09 Urine Other Fiber 10/11/16 21:09 Urine HCG, Qual Negative (NEGATIVE) 10/11/16 21:09 Urine Opiates Screen Positive (NEGATIVE) H 10/12/16 00:15 Urine Methadone Screen Negative (NEGATIVE) 10/12/16 00:15 Ur Barbiturates Screen Negative (NEGATIVE) 10/12/16 00:15 Ur Phencyclidine Scrn Negative (NEGATIVE) 10/12/16 00:15 Ur Amphetamines Screen Negative (NEGATIVE) 10/12/16 00:15 U Benzodiazepines Scrn Negative (NEGATIVE) 10/12/16 00:15 U Oth Cocaine Metabols Negative (NEGATIVE) 10/12/16 00:15 U Cannabinoids Screen Negative (NEGATIVE) 10/12/16 00:15 Alcohol, Quantitative < 10 mg/dL (0-10) 10/12/16 07:00 RPR Nonreactive (NONREACTIVE) 10/12/16 07:20 Hepatitis A IgM Ab Negative (NEGATIVE) 10/12/16 07:00 Hep Bs Antigen Negative (NEGATIVE) 10/12/16 07:00 Hep B Core IgM Ab Negative (NEGATIVE) 10/12/16 07:00 Hepatitis C Antibody Negative (NEGATIVE) 10/12/16 07:00 Attending/Attestation - Attestation I have personally seen and examined this patient.: Yes I have fully participated in the care of the patient.: Yes I have reviewed all pertinent clinical information, including history, physical exam and plan: Yes Notes (Text): 10/12/16 16:37 Attending note; Patient seen and examined with resident. Patient is a 31-year-old female with a history of IVDA is admitted with right anterior cubital fossa abscess. Status post incision and drainage by surgery Dr. Tamez. Patient does not want to stay in the hospital to get treatment. Complications of IVDA including bacteremia, endocarditis, explained to the patient in detail. Prescription for Augmentin and doxycycline given. Patient signed AGAINST MEDICAL ADVICE. Diagnosis; Abscess Status post incision and drainage IVDA Elevated LFT
--- NOTE | 2016-10-12 12:42 | CP.PCM.CON ---
History of Present Illness - History of Present Illness History of Present Illness: 31 year old female with PMH of active IV heroin use and abuse, history of arm cellulitis with MSSA in the past, depression, asthma came in to [facility] because of worsening swelling and pain of the right arm antecubital area for the past 4-5 days. She admits to injecting heroin in that area. She denies animal contacts, no soaking in water. She denies fever or chills, no nausea or vomiting, no chest pain, no SOB, no headache or dizziness, no dysphagia, no abdominal pain, no diarrhea, no dysuria. When I saw the patient, she had already gone to the OR for I and D. Infectious diseases consult is requested for antibiotic management. Review of Systems - Review of Systems All systems: reviewed and no additional remarkable complaints except (as per HPI ) Past Patient History - Infectious Disease Hx of Infectious Diseases: None - Tetanus Immunizations Tetanus Immunization: Up to Date - Past Medical History & Family History Past Medical History?: Yes - Past Social History Smoking Status: Heavy Smoker > 10 Cigarettes Daily - CARDIAC Hx Cardiac Disorders: No Hx Hypertension: No - PULMONARY Hx Asthma: Yes Hx Tuberculosis: No - NEUROLOGICAL HX Cerebrovascular Accident: No Hx Seizures: No - HEENT Hx HEENT Problems: No - RENAL Hx Chronic Kidney Disease: No - ENDOCRINE/METABOLIC Hx Endocrine Disorders: No - HEMATOLOGICAL/ONCOLOGICAL Hx Cancer: No Other/Comment: IV HEROIN USER - INTEGUMENTARY Other/Comment: Abscess on both hands; scattered/multiple IV drug salas - MUSCULOSKELETAL/RHEUMATOLOGICAL Hx Falls: No - GASTROINTESTINAL Hx Gastrointestinal Disorders: No - GENITOURINARY/GYNECOLOGICAL Hx Sexually Transmitted Disorders: No Hx Urinary Tract Infection: Yes - PSYCHIATRIC Hx Anxiety: Yes Hx Depression: Yes Hx Substance Use: Yes (IV HEROIN) - SURGICAL HISTORY Other/Comment: biopsy lymph nodes - ANESTHESIA Hx Anesthesia: No Hx Anesthesia Reactions: No Hx Malignant Hyperthermia: No Meds Home Medications: Home Medication List Medication Instructions Recorded Confirmed Type Amoxicillin/Clavulanate [Augmentin 1 tab PO BID #14 tab 10/12/16 Rx 875 MG-125 MG] Doxycycline Hyclate 100 mg PO BID #14 capsule 10/12/16 Rx Allergies/Adverse Reactions: Allergies Allergy/AdvReac Type Severity Reaction Status Date / Time No Known Allergies Allergy Verified 10/11/16 18:32 - Medications Medications: Current Medications Acetaminophen (Tylenol 325mg Tab) 650 mg PO Q6H PRN PRN Reason: Fever >100.4 F Famotidine (Pepcid) 20 mg PO BID [facility] Sodium Chloride (Sodium Chloride 0.9%) 1,000 mls @ 100 mls/hr IV .Q10H [facility] Last Admin: 10/11/16 20:40 Dose: 100 mls/hr Piperacillin Sod/Tazobactam Sod (Zosyn 3.375 In Ns 100ml) 100 mls @ 200 mls/hr IVPB Q6 AUDIE PRN Reason: Protocol Stop: 10/19/16 00:01 Last Admin: 10/12/16 05:17 Dose: 200 mls/hr Ibuprofen (Motrin Tab) 600 mg PO Q6H PRN PRN Reason: Pain, Mild (1-3) Last Admin: 10/12/16 00:22 Dose: 600 mg Levalbuterol HCl (Xopenex) 1.25 mg IH Q6H PRN PRN Reason: SOb Morphine Sulfate (Morphine) 4 mg IVP Q4H PRN PRN Reason: Pain, severe (8-10) Last Admin: 10/12/16 06:05 Dose: 4 mg Nicotine (Nicoderm Cq) 1 patch TD DAILY [facility] Ondansetron HCl (Zofran Inj) 8 mg IVP Q6H PRN PRN Reason: Nausea/Vomiting Trazodone HCl (Desyrel) 50 mg PO HS [facility] Last Admin: 10/11/16 23:53 Dose: 50 mg Vancomycin HCl (Vancomycin Inj) 1 gm IVPB Q12 [facility] PRN Reason: Protocol Physical Exam - Constitutional Appears: Non-toxic, No Acute Distress - Head Exam Head Exam: NORMAL INSPECTION - ENT Exam ENT Exam: Mucous Membranes Moist - Neck Exam Neck exam: Negative for: Lymphadenopathy, Meningismus - Respiratory Exam Respiratory Exam: Decreased Breath Sounds - Cardiovascular Exam Cardiovascular Exam: +S1, +S2 - GI/Abdominal Exam GI & Abdominal Exam: Soft. absent: Tenderness - Extremities Exam Additional comments: right arm with dry dressings in place Results - Vital Signs Recent Vital Signs: Last Vital Signs Temp 99.8 F H 10/11/16 22:56 Pulse 75 10/11/16 22:56 Resp 20 10/11/16 22:56 BP 135/78 10/11/16 22:56 Pulse Ox 98 10/11/16 18:27 - Labs Result Diagrams: 10/12/16 07:00 10/12/16 07:00 Labs: Laboratory Results - last 24 hr 10/11/16 10/12/16 21:09 00:15 Urine Color Dark yellow Urine Appearance Sl cloudy Urine pH 6.0 Ur Specific [place] >= 1.030 Urine Protein 30 H Urine Glucose (UA) Negative Urine Ketones 15 H Urine Blood Trace-intact H Urine Nitrate Positive H Urine Bilirubin Moderate H Urine Urobilinogen 4.0 H Ur Leukocyte Esterase Moderate H Urine RBC 5 - 10 Urine WBC 10 - 15 Ur Epithelial Cells 4 - 5 Urine Bacteria Mod Urine Other Fiber Urine HCG, Qual Negative Urine Opiates Screen Positive H Urine Methadone Screen Negative Ur Barbiturates Screen Negative Ur Phencyclidine Scrn Negative Ur Amphetamines Screen Negative U Benzodiazepines Scrn Negative U Oth Cocaine Metabols Negative U Cannabinoids Screen Negative Assessment & Plan - Assessment and Plan (Free Text) Plan: Assessment Right upper extremity purulent skin and skin structure infection in an IV drug user S/P I and D today active IV heroin use and abuse history of arm cellulitis with MSSA in the past depression asthma Plan Started patient on Vancomycin and Zosyn pending blood and wound cx (taken from the OR) Patient wants to sign out AMA and we have discussed with the patient that her condition may worsen if does sign out AMA, which includes - the patient understands and still wants to sign out AMA
--- NOTE | 2016-10-12 17:22 | OP ---
PROCEDURE DATE: 10/12/2016 SURGEON: Dr. Tamez. PLATE KEEPER: Dr. Dillard. ANESTHESIA: General via mask, Dr. Lehman. PREOPERATIVE DIAGNOSIS: Abscess, right arm. POSTOPERATIVE DIAGNOSIS: Abscess, right arm. PROCEDURE: Incision and drainage of right arm abscess. DESCRIPTION OF OPERATION: With the patient in the supine position under general anesthesia, the [facility] arm was prepped and draped from the wrist to the shoulder. The patient was noted to have swelling overlying the biceps area of the arm just proximal to the elbow with two 1 cm openings which had begu n draining blood-tinged purulent fluid. Using a clamp and the suction, loculations in the area benea th the area of drainage was broken up to allow drainage of additional fluid and a significant amount of fluid was expressed from the wound. There was swelling noted medially along the arm; however, no additional collection was identified in this area and it most likely represented residual induration and cellulitis. Iodoform packing was placed followed by a dry sterile dressing. The patient tolerat ed the procedure well and transferred to recovery room in stable condition. Estimated blood loss for the procedure was 5 mL. Miguel Tamez MD cc: 58 TT: 10/12/2016 17:21:37 oren
--- NOTE | 2016-10-12 22:45 | CARD ---
APPROVED REPORT EKG Measurement Heart [id number] [id number] <Conclusion> Poor data quality, interpretation may be adversely affected Sinus rhythm with marked sinus arrhythmia Otherwise normal ECG
== END 2016-10-12 13:29 | disposition left against medical advice (07) | DRG 872 ==
LOC: ED 18:10 → ERH 20:13 → 3RNO 23:00
PROVIDERS: ADMIT Internal Medicine; ATTEND Internal Medicine
PROC: 0H9BXZZ Drainage of Right Upper Arm Skin, External Approach (ICD-10-PCS; principal; 2016-10-12 09:30)
DX: A41.9 Sepsis, unspecified organism (principal); F11.10 Opioid abuse, uncomplicated; L03.113 Cellulitis of right upper limb; L02.413 Cutaneous abscess of right upper limb; F32.89 Other specified depressive episodes; J45.20 Mild intermittent asthma, uncomplicated; Z80.3 Family history of malignant neoplasm of breast; Z87.440 Personal history of urinary (tract) infections; F41.9 Anxiety disorder, unspecified; F17.210 Nicotine dependence, cigarettes, uncomplicated; R40.2412 Glasgow coma scale score 13-15, at arrival to emergency department; D64.9 Anemia, unspecified; Z86.19 Personal history of other infectious and parasitic diseases

== ENCOUNTER 2016-11-07 22:54 | Emergency (ER) | payer MEDICAID, OTHER ==
[2016-11-07 23:03] VITALS: BMI 26.6
[2016-11-07 23:07] VITALS: BP 129/91; PULSE 93; RESP 16
--- NOTE | 2016-11-08 00:08 | ED PDOC ---
Arrival/HPI - General Chief Complaint: Abnormal Skin Integrity Time Seen by Provider: 11/07/16 23:24 Historian: Patient - History of Present Illness Narrative History of Present Illness (Text): 11/08/16 00:07 31 year old female who presents to the Emergency department complaining of an abscess to right antecubital fossa. Patient reports the abscess was drained 2 weeks prior and was placed on antibiotics, however reports she admits she takes antibiotics on and off. Despite taking medication, patient developed 2 abscesses to the dorsal aspect of her left forearm with surrounding redness and swelling. Patient admits to IV drug abuse and states she is still using. Patient denies any fever, chills, trauma/injury, weakness/numbness, or any other complaints. Symptom Onset: Gradual Symptom Course: Unchanged Activities at Onset: Light Context: Home Past Medical History - Provider Review Nursing Documentation Reviewed: Yes - Infectious Disease Hx of Infectious Diseases: None - Tetanus Immunization Tetanus Immunization: Up to Date - Past Medical History Past Medical History: No Previous - Cardiac Hx Cardiac Disorders: No Hx Hypertension: No - Pulmonary Hx Asthma: Yes Hx Tuberculosis: No - Neurological HX Cerebrovascular Accident: No Hx Seizures: No - HEENT Hx HEENT Disorder: No - Renal Hx Renal Disorder: No - Endocrine/Metabolic Hx Endocrine Disorders: No - Hematological/Oncological Hx Cancer: No Other/Comment: IV HEROIN USER - Integumentary Other/Comment: Abscess on both hands; scattered/multiple IV drug salas - Musculoskeletal/Rheumatological Hx Falls: No - Gastrointestinal Hx Gastrointestinal Disorders: No - Genitourinary/Gynecological Hx Sexually Transmitted Diseases: No Hx Urinary Tract Infection: Yes - Psychiatric Hx Anxiety: Yes Hx Depression: Yes Hx Substance Use: Yes (IV HEROIN) - Past Surgical History Past Surgical History: No Previous - Surgical History Other/Comment: biopsy lymph nodes - Anesthesia Hx Anesthesia: No Hx Anesthesia Reactions: No Hx Malignant Hyperthermia: No - Suicidal Assessment Feels Threatened In Home Enviroment: No Family/Social History - Physician Review Nursing Documentation Reviewed: Yes Family/Social History: Unknown Family HX Smoking Status: Heavy Smoker > 10 Cigarettes Daily Hx Alcohol Use: No Hx Substance Use: Yes (IV HEROIN) Substance used: HEROIN, COCAINE Hx Substance Use Treatment: No Allergies/Home Meds Allergies/Adverse Reactions: Allergies No Known Allergies Allergy (Verified 11/07/16 23:03) Review of Systems - Physician Review All systems were reviewed & negative as marked: Yes - Review of Systems Constitutional: Normal. absent: Fevers Eyes: Normal ENT: Normal Respiratory: Normal. absent: SOB, Cough Cardiovascular: Normal. absent: Chest Pain Gastrointestinal: Normal. absent: Abdominal Pain, Nausea, Vomiting Genitourinary Female: Normal Musculoskeletal: Normal. absent: Back Pain, Neck Pain Skin: Abscess (+abscesses to bilateral arms) Physical Exam Vital Signs Reviewed: Yes Vital Signs Temp Pulse Resp BP Pulse Ox 11/08/16 02:00 98.5 F 16 98 11/07/16 23:07 100.5 F H 93 H 16 129/91 H 99 Temperature: Afebrile Blood Pressure: Normal Pulse: Regular Respiratory Rate: Normal Appearance: Positive for: Well-Appearing, Non-Toxic, Comfortable Pain Distress: None Mental Status: Positive for: Alert and Oriented X 3 - Systems Exam Head: Present: Atraumatic, Normocephalic Pupils: Present: PERRL Extroacular Muscles: Present: EOMI Conjunctiva: Present: Normal Mouth: Present: Moist Mucous Membranes Neck: Present: Normal Range of Motion Respiratory/Chest: Present: Clear to Auscultation, Good Air Exchange. No: Respiratory Distress, Accessory Muscle Use Cardiovascular: Present: Regular Rate and Rhythm, Normal S1, S2. No: Murmurs Abdomen: Present: Normal Bowel Sounds. No: Tenderness, Distention, Peritoneal Signs Back: Present: Normal Inspection Upper Extremity: Present: NORMAL PULSES, Erythema (Abscess to right antecubital fossa, still open, non-draining with no surrounding erythema or edema. Pt only able to extend right arm to approximately 130 degrees, otherwise distal sensory intact. 2 abscesses measuring 5x5cm and 2x3cm to dorsal left forearm with surrounding erythema and tenderness. Pt is unable to fully extend left arm at the elbow.), Neurovascularly Intact, Capillary Refill < 2s. No: Cyanosis Lower Extremity: Present: Normal Inspection. No: Edema Neurological: Present: GCS=15, CN II-XII Intact, Speech Normal Skin: Present: Warm, Dry, Normal Color. No: Rashes Psychiatric: Present: Alert, Oriented x 3, Normal Insight, Normal Concentration Medical Decision Making ED Course and Treatment: 11/08/16 00:07 Impression: 31 year old female complaining of 1 abscess to right antecubital fossa, 2 abscess to left forearm, dorsal aspect with surrounding cellulitis. Differential Diagnosis included but are not limited to: abscess with cellulitis Plan: -- Reassess and disposition -- Bactrim / keflex po -- Naprosyn po -- Wound cx Based on history and exam, patient was offered labs, IV antibiotics and admission to the hospital which the patient refused. States that she does not want labs, IV access or IV antibiotics at this time, and she is declining admission to the hospital. Patient is willing to have I&D done to both abscess by PA. Progress Notes: 11/08/16 01:00 Prior to procedure "time out" was called in order to confirm the correct patient and procedure. Through aseptic technique, local anesthesia was administered to both abscess, incision and drainage of both abscess was performed by JULIO which produced purulent material. Wound packing was inserted to the wound. Clean dressing was applied. Repeat T 98.5. Patient refuses further care, evaluation or treatment in the ER. Patient informed of the reasons for the following and planned treatment, which patient understands, however still refuses. Patient informed of the risk and benefits of treatment. Informed that the risk could include worsening of current conditions, undiagnosed conditions, disability or even . Patient understands the following risk and the benefits of treatment. Patient has the capacity to make decisions and still refuses treatment by RN, PA and ER MD. Patient encouraged to return to the ER at any time and to follow up with pmd. Advised to return to the emergency room in 2 days for reevaluation, encouraged to return to the emergency room at any time if she changes her mind and reconsiders hospital admission for IV antibiotics. - Medication Orders Current Medication Orders: Discontinued Medications Cephalexin Monohydrate (Keflex) 500 mg PO STAT STA PRN Reason: Protocol Stop: 11/08/16 01:25 Last Admin: 11/08/16 01:58 Dose: 500 mg Naproxen (Anaprox Ds) 550 mg PO ONCE STA Stop: 11/08/16 01:25 Last Admin: 11/08/16 01:58 Dose: 550 mg Trimethoprim/Sulfamethoxazole (Bactrim Ds Tab) 2 tab PO STAT STA PRN Reason: Protocol Stop: 11/08/16 01:25 Last Admin: 11/08/16 01:57 Dose: 2 tab - PA / ELECTROSTATIC PAINT OPERATOR / Resident Statement MD/DO has reviewed & agrees with the documentation as recorded. - Scribe Statement The provider has reviewed the documentation as recorded by the Holgeribmonica Baker All medical record entries made by the Holgeribmonica were at my direction and personally dictated by me. I have reviewed the chart and agree that the record accurately reflects my personal performance of the history, physical exam, medical decision making, and the department course for this patient. I have also personally directed, reviewed, and agree with the discharge instructions and disposition. Disposition/Present on Arrival - Present on Arrival Any Indicators Present on Arrival: No History of DVT/PE: No History of Uncontrolled Diabetes: No Urinary Catheter: No History of Decub. Ulcer: No History Surgical Site Infection Following: None - Disposition Have Diagnosis and Disposition been Completed?: Yes Diagnosis: Abscess, IV drug abuse, Cellulitis Disposition: AGAINST MEDICAL ADVICE Disposition Time: 01:00 Patient Plan: Other (pt wishes to leave AMA) Condition: STABLE Discharge Instructions (ExitCare): Cellulitis (ED), Abscess (ED), Against Medical Advice (ED) Print Language: UZBEK Additional Instructions: Thank you for letting us take care of you today. You were treated for abscess, cellulitis. The emergency medical care you received today was directed at your acute symptoms. If you were prescribed any medication, please fill it and take as directed. It may take several days for your symptoms to resolve. Return to the Emergency Department if your symptoms worsen, do not improve, if you change your mind / reconsider or if you have any other problems. Return to the emergency room in 2 days for re-evaluation and follow up. Bring any paperwork you were given at discharge with you along with any medications you are taking to your follow up visit. Our treatment cannot replace ongoing medical care by a primary care provider (PCP) outside of the emergency department. Thank you for allowing the Critical access hospital team to be part of your care today. Prescriptions: Cephalexin [Keflex] 500 mg PO Q6 #28 capsule Sulfamethoxazole/Trimethoprim [Bactrim DS 800 mg-160 mg] 2 tab PO BID #28 tab
[2016-11-08] MEDS ORDERED: Tmp-Smz 800 mg-160 mg DS Tab PO STA (01:24)
[2016-11-08] MEDS ORDERED: Naproxen 550 mg Tab PO STA (01:24)
[2016-11-08 02:00] VITALS: TEMP 98.5
[2016-11-08 02:02] VITALS: O2SAT 98
== END 2016-11-08 02:10 | disposition left against medical advice (07) ==
LOC: ED 22:54
DX: L02.414 Cutaneous abscess of left upper limb (principal); F17.210 Nicotine dependence, cigarettes, uncomplicated

== ENCOUNTER 2018-01-12 22:25 | Inpatient (IN) | payer MEDICAID, OTHER ==
[2018-01-12] MEDS ORDERED: Sodium Chloride 0.9% 1,000 ML IV STA (23:15)
[2018-01-12] MEDS ORDERED: Vancomycin 1gm in NS 250ml 1 GM/250 ML BAG IVPB STA (23:15)
[2018-01-12] MEDS ORDERED: Piperacillin/Tazobact 3.375 gm 100 ML IVPB STA (23:15)
[2018-01-12] MEDS ORDERED: TDAP Vaccine 0.5 mL Syr IM ONE (23:18)
--- NOTE | 2018-01-12 23:49 | ED PDOC ---
Arrival/HPI <Avery Carey - Last Filed: 01/13/18 00:45> - General Historian: Patient <Randi Hendrix - Last Filed: 01/13/18 02:15> - General Chief Complaint: Abnormal Skin Integrity Time Seen by Provider: 01/12/18 23:12 - History of Present Illness Narrative History of Present Illness (Text): 01/12/18 23:43 32-year-old female with a history of IV drug abuse presents today with a large draining wound from the left upper arm. Patient admits to injecting heroin into the arm last week. Patient states 2 days after injecting she noticed it swelled up. Patient states then 2 days ago the wound popped and patient had foul- smelling discharge with a large wound. Patient denies fevers or chills. She is complaining of pain to the left upper arm. Patient denies numbness weakness or tingling in the extremity. No other complaints (Randi Hendrix) Past Medical History - Provider Review Nursing Documentation Reviewed: Yes - Travel History Have you recently traveled outside [place] w/in the past 3 mons?: No - Infectious Disease Hx of Infectious Diseases: None - Tetanus Immunization Tetanus Immunization: Up to Date - Past Medical History Past Medical History: No Previous - Cardiac Hx Cardiac Disorders: No Hx Hypertension: No - Pulmonary Hx Asthma: Yes Hx Tuberculosis: No - Neurological HX Cerebrovascular Accident: No Hx Seizures: No - HEENT Hx HEENT Disorder: No - Renal Hx Renal Disorder: No - Endocrine/Metabolic Hx Endocrine Disorders: No Other/Comment: Hisotry of MRSA. - Hematological/Oncological Hx Cancer: No Other/Comment: IV HEROIN USER - Integumentary Other/Comment: Abscess on both hands; scattered/multiple IV drug salas - Musculoskeletal/Rheumatological Hx Falls: No - Gastrointestinal Hx Gastrointestinal Disorders: No - Genitourinary/Gynecological Hx Sexually Transmitted Diseases: No Hx Urinary Tract Infection: Yes - Psychiatric Hx Anxiety: Yes Hx Depression: Yes Hx Substance Use: Yes (IV HEROIN) - Past Surgical History Past Surgical History: No Previous - Surgical History Other/Comment: biopsy lymph nodes - Anesthesia Hx Anesthesia: No Hx Anesthesia Reactions: No Hx Malignant Hyperthermia: No - Suicidal Assessment Feels Threatened In Home Enviroment: No <Randi Hendrix - Last Filed: 01/13/18 02:15> Family/Social History - Physician Review Nursing Documentation Reviewed: Yes Family/Social History: Unknown Family HX Smoking Status: Heavy Smoker > 10 Cigarettes Daily Hx Alcohol Use: No Hx Substance Use: Yes (IV HEROIN) Substance used: HEROIN, COCAINE Hx Substance Use Treatment: No <Randi Hendrix - Last Filed: 01/13/18 02:15> Allergies/Home Meds <Avery Carey - Last Filed: 01/13/18 00:45> <Randi Hendrix - Last Filed: 01/13/18 02:15> Allergies/Adverse Reactions: Allergies No Known Allergies Allergy (Verified 11/07/16 23:03) Home Medications: Home Meds Medication Instructions Recorded Confirmed No Known Home Med 01/13/18 01/13/18 Review of Systems - Review of Systems Constitutional: absent: Fatigue, Fevers Respiratory: absent: SOB, Cough Cardiovascular: absent: Chest Pain, Palpitations Gastrointestinal: absent: Abdominal Pain, Nausea, Vomiting Musculoskeletal: Arthralgias Skin: Abscess Neurological: absent: Headache, Dizziness Psychiatric: absent: Anxiety, Depression <Randi Hendrix - Last Filed: 01/13/18 02:15> Physical Exam Vital Signs Reviewed: Yes Temperature: Afebrile Blood Pressure: Normal Pulse: Regular Respiratory Rate: Normal Appearance: Positive for: Well-Appearing, Non-Toxic, Comfortable Pain Distress: None Mental Status: Positive for: Alert and Oriented X 3 - Systems Exam Head: Present: Atraumatic Mouth: Present: Moist Mucous Membranes Neck: Present: Normal Range of Motion Respiratory/Chest: Present: Clear to Auscultation Cardiovascular: Present: Regular Rate and Rhythm Upper Extremity: Present: Normal ROM, NORMAL PULSES, Tenderness (left arm; + large golf ball sized wound with necrotic tissue and purulent discharge with surrounding erythema, edema and tenderness. ), Swelling, Erythema, Capillary Refill < 2s Neurological: Present: GCS=15, Speech Normal, Motor Func Grossly Intact, Normal Sensory Function Skin: Present: Warm, Dry, Normal Color Psychiatric: Present: Alert, Oriented x 3 <Randi Hendrix - Last Filed: 01/13/18 02:15> Vital Signs Temp Pulse Resp BP Pulse Ox 01/12/18 23:59 98.0 F 96 H 17 138/70 100 Medical Decision Making <Avery Carey - Last Filed: 01/13/18 00:45> <Randi Hendrix - Last Filed: 01/13/18 02:15> ED Course and Treatment: 01/12/18 23:51 32yr old female with abscess/wound to left upper arm. hx of IVDA cbc wnl cmp: minimally elevated lfts glucose; 127 blood culture pending wound culture pending xray left humerus: no fx case discussed with certified surgical tech/first assistant dr. stone. who will see patient at bedside. pt seen and evaluated by dr. carey case discussed with dr. fuchs accepts admission impression; abscess, arm admit to med/surg with surgical consult (Randi Hendrix) - Lab Interpretations Lab Results: 01/12/18 23:33 01/12/18 23:33 Lab Results 01/12/18 23:33: WBC 6.3 D, RBC 4.05, Hgb 11.4 L, Hct 34.8 L, MCV 85.9, MCH 28.1 , MCHC 32.8, RDW 13.2, Plt Count 283, MPV 10.4, Gran % 60.3, Lymph % (Auto) 27.1 , Rooks % (Auto) 4.8, Eos % (Auto) 7.5 H, Baso % (Auto) 0.3, Gran # 3.79, Lymph # (Auto) 1.7, Rooks # (Auto) 0.3, Eos # (Auto) 0.5, Baso # (Auto) 0.02 01/12/18 23:33: Sodium 140, Potassium 4.3, Chloride 105, Carbon Dioxide 24, Anion Gap 15, BUN 11, Creatinine 0.8, Est GFR ( Amer) > 60, Est GFR (Non- Af Amer) > 60, Random Glucose 127 H, Calcium 9.1, Total Bilirubin 0.7, AST 44 H , ALT 49, Alkaline Phosphatase 335 H, Total Protein 7.3, Albumin 3.5, Globulin 3.8, Albumin/Globulin Ratio 0.9 L - RAD Interpretation Radiology Orders: 01/12/18 23:16 HUMERUS LEFT [RAD] Stat - Medication Orders Current Medication Orders: Sodium Chloride (Sodium Chloride 0.9%) 1,000 mls @ 125 mls/hr IV .Q8H AUDIE Last Admin: 01/13/18 01:21 Dose: 125 mls/hr eMAR Start Stop Document 01/13/18 01:21 IT (Rec: 01/13/18 01:21 IT [id number]) Intravenous Solution Start Date 01/13/18 Start Time 01:21 Discontinued Medications Vancomycin HCl (Vancomycin 1gm) 1 gm in 250 mls @ 167 mls/hr IVPB STAT STA PRN Reason: Protocol Stop: 01/13/18 00:44 Piperacillin Sod/Tazobactam Sod (Zosyn 3.375 In Ns 100ml) 100 mls @ 200 mls/hr IVPB STAT STA PRN Reason: Protocol Stop: 01/12/18 23:44 Last Admin: 01/12/18 23:57 Dose: 200 mls/hr eMAR Start Stop Document 01/12/18 23:57 IT (Rec: 01/12/18 23:57 IT [id number]) Intravenous Solution Start Date 01/12/18 Start Time 23:57 Sodium Chloride (Sodium Chloride 0.9%) 1,000 mls @ 999 mls/hr IV .Q1H1M STA Stop: 01/13/18 00:15 Last Admin: 01/12/18 23:57 Dose: 999 mls/hr eMAR Start Stop Document 01/12/18 23:57 IT (Rec: 01/12/18 23:57 IT [id number]) Intravenous Solution Start Date 01/12/18 Start Time 23:57 Ketorolac Tromethamine (Toradol) 30 mg IVP STAT STA Stop: 01/13/18 00:36 Last Admin: 01/13/18 01:21 Dose: 30 mg MAR Pain Assessment Document 01/13/18 01:21 IT (Rec: 01/13/18 01:21 IT [id number]) Pain Reassessment Is this a pain reassessment? No Sleep Is patient sleeping during reassessment? No Presence of Pain Presence of Pain No IVP Administration Document 01/13/18 01:21 IT (Rec: 01/13/18 01:21 IT [id number]) Charges for Administration # of IVP Administrations 1 Tetanus/Reduced Diphtheria/Acell Pertussis (Boostrix Vaccine Inj) 0.5 ml IM .ONCE ONE Stop: 01/12/18 23:19 Last Admin: 01/12/18 23:57 Dose: 0.5 ml MAR Immunization Data Document 01/12/18 23:57 IT (Rec: 01/12/18 23:58 IT [id number]) Immunization Data Vaccine Information Sheet Given Yes Immunization Registry Document 01/12/18 23:57 IT (Rec: 01/12/18 23:58 IT [id number]) Immunization Registry Consent Date 01/12/18 - PA / ENVIRONMENTAL JOURNALIST / Resident Statement / has reviewed & agrees with the documentation as recorded. / has examined the patient and agrees with the treatment plan. <Avery Carey - Last Filed: 01/13/18 00:45> Disposition/Present on Arrival <Avery Carey - Last Filed: 01/13/18 00:45> - Present on Arrival Any Indicators Present on Arrival: No History of DVT/PE: No History of Uncontrolled Diabetes: No Urinary Catheter: No History of Decub. Ulcer: No History Surgical Site Infection Following: None - Disposition Have Diagnosis and Disposition been Completed?: Yes Disposition Time: 00:06 Patient Plan: Admission <Randi Hendrix - Last Filed: 01/13/18 02:15> - Disposition Diagnosis: Abscess of arm, Cellulitis of arm Disposition: HOSPITALIZED Patient Problems: Current Active Problems Problem Status Onset Abscess of arm Acute Cellulitis of arm Acute Condition: FAIR
[2018-01-12 23:50] LABS: BASO # 0.02 K/mm3 (0.0-2.0); BASO % 0.3 % (0.0-3.0); EOS # 0.5 (0.0-0.7); EOS % 7.5 % (1.5-5.0); GRAN # 3.79 (1.4-6.5); GRAN % 60.3 % (50.0-68.0); HEMOGLOBIN 11.4 g/dL (12.0-16.0); LYMPH # 1.7 (1.2-3.4); LYMPH % 27.1 % (22.0-35.0); MEAN CELL VOLUME 85.9 fl (80.0-105.0); MEAN CORPUSCULAR HEMOGLOBIN 28.1 pg (25.0-35.0); MEAN CORPUSCULAR HGB CONC 32.8 g/dl (31.0-37.0); MEAN PLATELET VOLUME 10.4 fl (7.0-11.0); MONO # 0.3 (0.1-0.6); MONO % 4.8 % (1.0-6.0); RBC 4.05 10^6/uL (3.5-6.1); RED CELL DISTRIBUTION WIDTH 13.2 % (11.5-14.5); WHITE BLOOD COUNT 6.3 10^3/ul (4.5-11.0)
[2018-01-13] LABS: ALB/GLOB RATIO 0.9 (1.1-1.8); ALBUMIN 3.5 g/dL (3.0-4.8); ALT/SGPT 49 U/L (7-56); AST/SGOT 44 U/L (14-36); BLOOD UREA NITROGEN 11 mg/dL (7-21); CALCIUM 9.1 mg/dL (8.4-10.5); GFR NON-AFRICAN AMERICAN > 60
--- NOTE | 2018-01-13 00:52 | CP.PCM.CON ---
History of Present Illness - History of Present Illness History of Present Illness: General Surgery - Dr. Greco 32 F w/ hx of IVDU, presenting with LUE wound, pain/redness/swelling x1 week. Pt states she has been on Methadone but she relapsed a little over a week ago. She states she noticed increased redness and swelling on the LUE about 1 week ago at site of injection, this progressively became larger forming an abscess and pt states that she popped it a few days ago. Since then the wound has continued to drain, redness has not improved, and over the past 2 days she has noticed a foul smell and black appearing tissue coming from the wound. She became concerned and decided to come to the ER. Pt denies any associated Fevers /Chills, SOb/Chest pains, Diarrhea. She has full ROM of the LUE and denies any numbness or tingling. She has had abscesses in the past secondary to IVDU and has required previous I&D on the RUE. PMH: IVDU, Hep B, Toxoplasmosis PSH: I&D Right antecubital fossa, Neck lymph node biopsy Meds: Methadone NKDA Social: 1/2 pack/day smoker, Denies ETOH, +Heroin and Benzo use (2mg Xanax ~3x daily per pt.) Review of Systems - Review of Systems All systems: reviewed and no additional remarkable complaints except (as per HPI ) Past Patient History - Infectious Disease Hx of Infectious Diseases: None - Tetanus Immunizations Tetanus Immunization: Up to Date - Past Medical History & Family History Past Medical History?: Yes - Past Social History Smoking Status: Heavy Smoker > 10 Cigarettes Daily - CARDIAC Hx Cardiac Disorders: No Hx Hypertension: No - PULMONARY Hx Asthma: Yes Hx Tuberculosis: No - NEUROLOGICAL HX Cerebrovascular Accident: No Hx Seizures: No - HEENT Hx HEENT Problems: No - RENAL Hx Chronic Kidney Disease: No - ENDOCRINE/METABOLIC Hx Endocrine Disorders: No Other/Comment: Hisotry of MRSA. - HEMATOLOGICAL/ONCOLOGICAL Hx Cancer: No Other/Comment: IV HEROIN USER - INTEGUMENTARY Other/Comment: Abscess on both hands; scattered/multiple IV drug salas - MUSCULOSKELETAL/RHEUMATOLOGICAL Hx Falls: No - GASTROINTESTINAL Hx Gastrointestinal Disorders: No - GENITOURINARY/GYNECOLOGICAL Hx Sexually Transmitted Disorders: No Hx Urinary Tract Infection: Yes - PSYCHIATRIC Hx Anxiety: Yes Hx Depression: Yes Hx Substance Use: Yes (IV HEROIN) - SURGICAL HISTORY Other/Comment: biopsy lymph nodes - ANESTHESIA Hx Anesthesia: No Hx Anesthesia Reactions: No Hx Malignant Hyperthermia: No Meds Allergies/Adverse Reactions: Allergies Allergy/AdvReac Type Severity Reaction Status Date / Time No Known Allergies Allergy Verified 11/07/16 23:03 - Medications Medications: Current Medications Sodium Chloride (Sodium Chloride 0.9%) 1,000 mls @ 125 mls/hr IV .Q8H AUDIE Physical Exam - Constitutional Appears: No Acute Distress - Head Exam Head Exam: ATRAUMATIC, NORMAL INSPECTION, NORMOCEPHALIC - Eye Exam Eye Exam: EOMI, Normal appearance - ENT Exam ENT Exam: Mucous Membranes Moist - Respiratory Exam Respiratory Exam: NORMAL BREATHING PATTERN. absent: Respiratory Distress - Cardiovascular Exam Cardiovascular Exam: REGULAR RHYTHM - Extremities Exam Additional comments: RUE with large approx 7x5cm necrotic wound with foul smelling purulent drainage and eschar, underlying cellulitis which extends from the mid humerus towards the inferior glenohumeral joint - Neurological Exam Neurological exam: Alert, Oriented x3 - Psychiatric Exam Psychiatric exam: Normal Affect, Normal Mood - Skin Skin Exam: Erythema, Warm Additional comments: see extremity exam Results - Vital Signs Recent Vital Signs: Last Vital Signs Temp 98.0 F 01/12/18 23:59 Pulse 96 H 01/12/18 23:59 Resp 17 01/12/18 23:59 BP 138/70 01/12/18 23:59 Pulse Ox 100 01/12/18 23:59 - Labs Result Diagrams: 01/12/18 23:33 01/12/18 23:33 Assessment & Plan - Assessment and Plan (Free Text) Assessment: 32F IVDU with LUE necrotic wound and cellulitis -F/U X-ray Left arm -Maintain NPO, IVF -IV Abx: Vanco/Zosyn -F/U wound cultures -Medical management as per Primary team -Plan for Wound debridement in OR this AM Will PHAN [place]as PGY4
[2018-01-13] MEDS: Sodium Chloride 0.9% 1,000 ML IV SCH ×2 (01:21→11:09)
--- NOTE | 2018-01-13 01:37 | CP.PCM.HP ---
<Selina Milan - Last Filed: 01/13/18 06:12> History of Present Illness - History of Present Illness History of Present Illness: Selina Milan, PGY-1 H&P for Hospitalist Service This is a 32 year old female with PMH of toxoplasmosis, IVDA with heroin, abscess with MRSA in right arm, depression, anxiety and asthma presenting to the ER for LUE foul smelling and draining wound. Patient is on methadone treatment at [facility] but relapsed a week ago with IV heroin injection on LUE. Patient then noticed increased swelling in the area and subsequently 'popped' it a few days later. Patient came into the ED today after noticing foul smell and dark green/black discharge. She admits to LUE pain and swelling. She denies history of endocarditis. She denies CP, SOB, headaches, fevers, chills, nausea, vomiting, back pain, numbness, tingling, recent travel, recent sickness, diarrhea and urinary complaints. 12 point ROS noted here, otherwise unremarkable. In the ED, xray did not show osteomyelitis (interpreted by me). Blood and wound culture ordered. Patient started on vanc and zosyn. Given TDAP vaccine and toradol for pain. Will admit to medsurg. PMH: as above, ?hepB SH: 1/2 ppd for 18 years, denies alcohol, admits to IVDA with heroin and xanax "off the street" Sx: multiple I&D on right arm, neck lymph node biopsy FH: mom had crohn's, dad had neuropathies All: denies Meds: takes 2mg xanax 3x per day and 170mg methadone from [facility] Present on Admission - Present on Admission Any Indicators Present on Admission: No Past Patient History - Infectious Disease Hx of Infectious Diseases: None - Tetanus Immunizations Tetanus Immunization: Up to Date - Past Medical History & Family History Past Medical History?: Yes - Past Social History Smoking Status: Heavy Smoker > 10 Cigarettes Daily - CARDIAC Hx Cardiac Disorders: No Hx Hypertension: No - PULMONARY Hx Asthma: Yes Hx Tuberculosis: No - NEUROLOGICAL HX Cerebrovascular Accident: No Hx Seizures: No - HEENT Hx HEENT Problems: No - RENAL Hx Chronic Kidney Disease: No - ENDOCRINE/METABOLIC Hx Endocrine Disorders: No Other/Comment: Hisotry of MRSA. - HEMATOLOGICAL/ONCOLOGICAL Hx Cancer: No Other/Comment: IV HEROIN USER - INTEGUMENTARY Other/Comment: Abscess on both hands; scattered/multiple IV drug salas - MUSCULOSKELETAL/RHEUMATOLOGICAL Hx Falls: No - GASTROINTESTINAL Hx Gastrointestinal Disorders: No - GENITOURINARY/GYNECOLOGICAL Hx Sexually Transmitted Disorders: No Hx Urinary Tract Infection: Yes - PSYCHIATRIC Hx Anxiety: Yes Hx Depression: Yes Hx Substance Use: Yes (IV HEROIN) - SURGICAL HISTORY Other/Comment: biopsy lymph nodes - ANESTHESIA Hx Anesthesia: No Hx Anesthesia Reactions: No Hx Malignant Hyperthermia: No Meds Allergies/Adverse Reactions: Allergies Allergy/AdvReac Type Severity Reaction Status Date / Time No Known Allergies Allergy Verified 11/07/16 23:03 Physical Exam - Constitutional Appears: Non-toxic - Head Exam Head Exam: ATRAUMATIC, NORMAL INSPECTION - Eye Exam Eye Exam: EOMI Pupil Exam: PERRL - Neck Exam Neck exam: Positive for: Normal Inspection - Respiratory Exam Respiratory Exam: Clear to Auscultation Bilateral. absent: Respiratory Distress - Cardiovascular Exam Cardiovascular Exam: REGULAR RHYTHM, +S1, +S2 - GI/Abdominal Exam GI & Abdominal Exam: Normal Bowel Sounds. absent: Firm, Guarding - Extremities Exam Extremities exam: Positive for: normal inspection. Negative for: calf tenderness - Back Exam Back exam: NORMAL INSPECTION - Neurological Exam Neurological exam: Alert, Oriented x3 - Skin Skin Exam: Warm Additional comments: LUE posterior approx 8x5cm wound that is draining black/green pus. Wound is irregular with erythematous margins. Wound is approx 2cm deep, but underlying bone is visualized. Results - Vital Signs Recent Vital Signs: Last Vital Signs Temp 98.0 F 01/12/18 23:59 Pulse 96 H 01/12/18 23:59 Resp 17 01/12/18 23:59 BP 138/70 01/12/18 23:59 Pulse Ox 100 01/12/18 23:59 - Labs Result Diagrams: 01/13/18 04:10 01/13/18 04:10 Assessment & Plan - Assessment and Plan (Free Text) Assessment: This is a 32 year old female with PMH of toxoplasmosis, IVDA with heroin, abscess with MRSA in right arm, depression, anxiety and asthma presenting to the hospital for management of LUE foul smelling and pus draining wound. Pending surgical debridement for today today. Plan: LUE draining wound -concerning for cellulitis vs abscess -blood culture and wound culture pending -Left arm x-ray does not show osteomyelitis (interpreted by me) -currently on vanc and zosyn -Pending surgical debridement for today -ID on consult -Gen Surg on consult Normocytic Anemia -Hg is 8.4 with normal MCV -will monitor Mild transaminitis -elevated AST -will monitor Hx IVDA -receives 170mg methadone from [facility] per patient -will call clinic in the AM to verify -hepatitis panel pending -HIV pending Hx of smoking -nicotine patch Hx Depression -currently denies complaints, will monitor Hx Asthma -currently denies complaints, will monitor PPX with protonix and SCD Patient seen and case discussed with attending, Dr. Jeannette Milan, PGY-1 <Jeannette Burgos N - Last Filed: 01/14/18 02:26> Results - Vital Signs Recent Vital Signs: Last Vital Signs Temp 97.0 F L 01/13/18 17:02 Pulse 70 01/13/18 17:02 Resp 20 01/13/18 17:02 BP 121/76 01/13/18 17:02 Pulse Ox 97 01/13/18 17:02 - Labs Result Diagrams: 01/13/18 04:10 01/13/18 04:10 Labs: Laboratory Results - last 24 hr 01/13/18 01/13/18 01/13/18 04:10 04:10 04:10 WBC 5.9 RBC 3.82 Hgb 10.6 L Hct 32.8 L MCV 85.9 MCH 27.7 MCHC 32.3 RDW 13.2 Plt Count 272 MPV 10.1 Gran % 53.6 Lymph % (Auto) 32.4 [place] % (Auto) 6.6 H Eos % (Auto) 7.2 H Baso % (Auto) 0.2 Gran # 3.15 Lymph # (Auto) 1.9 [place] # (Auto) 0.4 Eos # (Auto) 0.4 Baso # (Auto) 0.01 Sodium 141 Potassium 4.4 Chloride 105 Carbon Dioxide 29 Anion Gap 12 BUN 12 Creatinine 1.1 Est GFR ( Amer) > 60 Est GFR (Non-Af Amer) 58 Random Glucose 91 Calcium 8.9 Phosphorus 4.6 H Magnesium 2.1 Total Bilirubin 0.6 AST 45 H ALT 49 Alkaline Phosphatase 316 H Total Protein 6.7 Albumin 3.3 Globulin 3.4 Albumin/Globulin Ratio 1.0 L Hepatitis A IgM Ab Negative Hep Bs Antigen Negative Hep Bs Antibody Hep B Core IgM Ab Negative Hepatitis C Antibody Negative 01/13/18 01/13/18 07:30 07:30 WBC RBC Hgb Hct MCV MCH MCHC RDW Plt Count MPV Gran % Lymph % (Auto) [place] % (Auto) Eos % (Auto) Baso % (Auto) Gran # Lymph # (Auto) [place] # (Auto) Eos # (Auto) Baso # (Auto) Sodium Potassium Chloride Carbon Dioxide Anion Gap BUN Creatinine Est GFR ( Amer) Est GFR (Non-Af Amer) Random Glucose Calcium Phosphorus Magnesium Total Bilirubin AST ALT Alkaline Phosphatase Total Protein Albumin Globulin Albumin/Globulin Ratio Hepatitis A IgM Ab Hep Bs Antigen Negative Hep Bs Antibody Positive Hep B Core IgM Ab Hepatitis C Antibody Negative
[2018-01-13 04:36] LABS: BASO # 0.01 K/mm3 (0.0-2.0); BASO % 0.2 % (0.0-3.0); EOS # 0.4 (0.0-0.7); EOS % 7.2 % (1.5-5.0); GRAN # 3.15 (1.4-6.5); GRAN % 53.6 % (50.0-68.0); HEMOGLOBIN 10.6 g/dL (12.0-16.0); LYMPH # 1.9 (1.2-3.4); LYMPH % 32.4 % (22.0-35.0); MEAN CELL VOLUME 85.9 fl (80.0-105.0); MEAN CORPUSCULAR HEMOGLOBIN 27.7 pg (25.0-35.0); MEAN CORPUSCULAR HGB CONC 32.3 g/dl (31.0-37.0); MEAN PLATELET VOLUME 10.1 fl (7.0-11.0); MONO # 0.4 (0.1-0.6); MONO % 6.6 % (1.0-6.0); RBC 3.82 10^6/uL (3.5-6.1); RED CELL DISTRIBUTION WIDTH 13.2 % (11.5-14.5); WHITE BLOOD COUNT 5.9 10^3/ul (4.5-11.0)
[2018-01-13 04:44] VITALS: BMI 25.7
[2018-01-13 05:16] LABS: ALBUMIN 3.3 g/dL (3.0-4.8); ALT/SGPT 49 U/L (7-56); AST/SGOT 45 U/L (14-36); BLOOD UREA NITROGEN 12 mg/dL (7-21); CALCIUM 8.9 mg/dL (8.4-10.5); GFR NON-AFRICAN AMERICAN 58
[2018-01-13] MEDS: Vancomycin 1gm in NS 250ml 1 GM/250 ML BAG IVPB SCH ×2 (06:40→18:51)
--- NOTE | 2018-01-13 08:37 | RAD ---
PROCEDURE: Radiographs of the left humerus. HISTORY: wound, humerus s/p IVDU COMPARISON: None. FINDINGS: BONES: Normal. No fracture or focal lesion. SOFT TISSUES: Normal. OTHER FINDINGS: None. IMPRESSION: Normal radiographs of left humerus.
--- NOTE | 2018-01-13 09:02 | CP.PCM.CON ---
<Alee Don - Last Filed: 01/13/18 12:35> History of Present Illness - History of Present Illness History of Present Illness: Pgy3 ID Consult note for Dr. Keen Reason for consult: cellulitis/abscess of LUE 32 yo female PMHx IVDU, Hep B, Toxoplasmosis (as per chart), anxiety, and asthma presented with LUE wound after she injected heroin 1 week ago. Patient reports she had been clean and on a methadone program at [facility] for the past 6 months but due to life stressors she was overwhelmed and relapsed injecting herself with 2 bags of "heroin and whatever else it was cut with". She noticed increased swelling and redness in the area which started to increase in size until it "popped" a few days prior to coming to the ER. Patient reported that the wound continued to drain and the redness did not improve. She decided to come in when she noted it became foul smelling with black tissue. She denied any associated fever, chills, headache, dizziness, chest pain, palpitations, SOB , cough, abd pain, nausea, vomiting, bowel/bladder complaints, pain/swelling in her legs b/l. She denied any decreased ROM of her LUE and denied any pain/ numbness/paresthesias in her LUE. This AM patient seen and examined at bedside. Reported no acute events overnight and was afebrile. ROS negative. Patient was NPO after midnight and for OR this afternoon. PMHx: IVDU, Hep B, Toxoplasmosis PSurgHx: I&D Right antecubital fossa, Neck lymph node biopsy Meds: Methadone ALL: NKDA SocHx: 1/2 pack/day smoker, Denies ETOH, +Heroin and Benzo use (2mg Xanax ~3x daily per pt.); lives at home with dad and brother and does not work. FamHx: mom had crohn's, dad had neuropathies PMD: None Review of Systems - Review of Systems All systems: reviewed and no additional remarkable complaints except Review of Systems: as per HPI Past Patient History - Infectious Disease Hx of Infectious Diseases: None - Tetanus Immunizations Tetanus Immunization: Up to Date - Past Medical History & Family History Past Medical History?: Yes - Past Social History Smoking Status: Heavy Smoker > 10 Cigarettes Daily - CARDIAC Hx Cardiac Disorders: No Hx Hypertension: No - PULMONARY Hx Asthma: Yes Hx Tuberculosis: No - NEUROLOGICAL HX Cerebrovascular Accident: No Hx Seizures: No - HEENT Hx HEENT Problems: No - RENAL Hx Chronic Kidney Disease: No - ENDOCRINE/METABOLIC Hx Endocrine Disorders: No Other/Comment: Hisotry of MRSA. - HEMATOLOGICAL/ONCOLOGICAL Hx Cancer: No Other/Comment: IV HEROIN USER - INTEGUMENTARY Other/Comment: Abscess on both hands; scattered/multiple IV drug salas - MUSCULOSKELETAL/RHEUMATOLOGICAL Hx Falls: No - GASTROINTESTINAL Hx Gastrointestinal Disorders: No - GENITOURINARY/GYNECOLOGICAL Hx Sexually Transmitted Disorders: No Hx Urinary Tract Infection: Yes - PSYCHIATRIC Hx Anxiety: Yes Hx Depression: Yes Hx Substance Use: Yes (IV HEROIN) - SURGICAL HISTORY Other/Comment: biopsy lymph nodes - ANESTHESIA Hx Anesthesia: No Hx Anesthesia Reactions: No Hx Malignant Hyperthermia: No Meds Allergies/Adverse Reactions: Allergies Allergy/AdvReac Type Severity Reaction Status Date / Time No Known Allergies Allergy Verified 11/07/16 23:03 - Medications Medications: Current Medications Alprazolam (Xanax) 1 mg PO Q6 PRN; Protocol PRN Reason: Anxiety Sodium Chloride (Sodium Chloride 0.9%) 1,000 mls @ 125 mls/hr IV .Q8H [facility] Last Admin: 01/13/18 01:21 Dose: 125 mls/hr Vancomycin HCl (Vancomycin 1gm) 1 gm in 250 mls @ 167 mls/hr IVPB Q12H [facility] PRN Reason: Protocol Last Admin: 01/13/18 06:40 Dose: 167 mls/hr Piperacillin Sod/Tazobactam Sod (Zosyn 3.375 In Ns 100ml) 100 mls @ 200 mls/hr IVPB Q6 AUDIE PRN Reason: Protocol Nicotine (Nicoderm Cq) 1 patch TD DAILY [facility] Tramadol HCl (Ultram) 50 mg PO Q6 PRN PRN Reason: Pain, moderate (4-7) Physical Exam - Constitutional Appears: Non-toxic, No Acute Distress - Head Exam Head Exam: ATRAUMATIC, NORMAL INSPECTION, NORMOCEPHALIC - Eye Exam Eye Exam: EOMI, Normal appearance, PERRL. absent: Conjunctival injection, Scleral icterus Pupil Exam: NORMAL ACCOMODATION - ENT Exam ENT Exam: Mucous Membranes Moist - Neck Exam Neck exam: Positive for: Full Rom. Negative for: Lymphadenopathy - Respiratory Exam Respiratory Exam: Clear to Auscultation Bilateral, NORMAL BREATHING PATTERN. absent: Accessory Muscle Use, Decreased Breath Sounds, Rales, Rhonchi, Wheezes, Respiratory Distress - Cardiovascular Exam Cardiovascular Exam: Tachycardia, +S1, +S2 - GI/Abdominal Exam GI & Abdominal Exam: Normal Bowel Sounds, Soft. absent: Firm, Guarding, Rigid - Rectal Exam Rectal Exam: Deferred - Extremities Exam Extremities exam: Positive for: normal capillary refill, pedal pulses present. Negative for: pedal edema Additional comments: LUE wrapped in dressing - Neurological Exam Neurological exam: Alert, CN II-XII Intact, Oriented x3 - Psychiatric Exam Psychiatric exam: Normal Affect, Normal Mood Results - Vital Signs Recent Vital Signs: Last Vital Signs Temp 98 F 01/13/18 08:27 Pulse 83 01/13/18 08:27 Resp 19 01/13/18 08:27 BP 115/74 01/13/18 08:27 Pulse Ox 95 01/13/18 08:27 - Labs Result Diagrams: 01/13/18 04:10 01/13/18 04:10 Labs: Laboratory Results - last 24 hr 01/13/18 01/13/18 04:10 04:10 WBC 5.9 RBC 3.82 Hgb 10.6 L Hct 32.8 L MCV 85.9 MCH 27.7 MCHC 32.3 RDW 13.2 Plt Count 272 MPV 10.1 Gran % 53.6 Lymph % (Auto) 32.4 [place] % (Auto) 6.6 H Eos % (Auto) 7.2 H Baso % (Auto) 0.2 Gran # 3.15 Lymph # (Auto) 1.9 [place] # (Auto) 0.4 Eos # (Auto) 0.4 Baso # (Auto) 0.01 Sodium 141 Potassium 4.4 Chloride 105 Carbon Dioxide 29 Anion Gap 12 BUN 12 Creatinine 1.1 Est GFR ( Amer) > 60 Est GFR (Non-Af Amer) 58 Random Glucose 91 Calcium 8.9 Phosphorus 4.6 H Magnesium 2.1 Total Bilirubin 0.6 AST 45 H ALT 49 Alkaline Phosphatase 316 H Total Protein 6.7 Albumin 3.3 Globulin 3.4 Albumin/Globulin Ratio 1.0 L Assessment & Plan - Assessment and Plan (Free Text) Assessment: 32 yo female PMHx IVDU, Hep B, Toxoplasmosis (as per chart), anxiety, and asthma presented with LUE wound after she injected heroin 1 week ago. ID consulted for cellulitis/abscess Plan: -patient for debridement in the OR today -continue Zosyn and Vancomycin; patient also started on Clindamycin -Lactobacillus bid -f/u Hep panel and Hep B and C studies and HIV -f/u blood and wound culture -L humerus x-ray unremarkable ID will continue to follow Discussed with Dr. Leonila Don PGY3 <Jared Keen - Last Filed: 01/13/18 13:15> Meds - Medications Medications: Current Medications Alprazolam (Xanax) 1 mg PO Q6 PRN; Protocol PRN Reason: Anxiety Sodium Chloride (Sodium Chloride 0.9%) 1,000 mls @ 125 mls/hr IV .Q8H [facility] Last Admin: 01/13/18 11:09 Dose: 125 mls/hr Vancomycin HCl (Vancomycin 1gm) 1 gm in 250 mls @ 167 mls/hr IVPB Q12H [facility] PRN Reason: Protocol Last Admin: 01/13/18 06:40 Dose: 167 mls/hr Piperacillin Sod/Tazobactam Sod (Zosyn 3.375 In Ns 100ml) 100 mls @ 200 mls/hr IVPB Q6 [facility]IE PRN Reason: Protocol Last Admin: 01/13/18 11:06 Dose: 200 mls/hr Clindamycin Phosphate (Cleocin) 600 mg in 50 mls @ 50 mls/hr IVPB Q8H [facility] PRN Reason: Protocol Stop: 01/18/18 11:31 Lactobacillus Acidophilus (Bacid Acidophilus) 1 cap PO BID [facility] Nicotine (Nicoderm Cq) 1 patch TD DAILY [facility] Last Admin: 01/13/18 11:06 Dose: 1 patch Tramadol HCl (Ultram) 50 mg PO Q6 PRN PRN Reason: Pain, moderate (4-7) Last Admin: 01/13/18 11:07 Dose: 50 mg Results - Vital Signs Recent Vital Signs: Last Vital Signs Temp 98 F 01/13/18 08:27 Pulse 83 01/13/18 08:27 Resp 19 01/13/18 08:27 BP 115/74 01/13/18 08:27 Pulse Ox 95 01/13/18 08:27 - Labs Result Diagrams: 01/13/18 04:10 01/13/18 04:10 Labs: Laboratory Results - last 24 hr 01/13/18 01/13/18 01/13/18 04:10 04:10 04:10 WBC 5.9 RBC 3.82 Hgb 10.6 L Hct 32.8 L MCV 85.9 MCH 27.7 MCHC 32.3 RDW 13.2 Plt Count 272 MPV 10.1 Gran % 53.6 Lymph % (Auto) 32.4 [place] % (Auto) 6.6 H Eos % (Auto) 7.2 H Baso % (Auto) 0.2 Gran # 3.15 Lymph # (Auto) 1.9 [place] # (Auto) 0.4 Eos # (Auto) 0.4 Baso # (Auto) 0.01 Sodium 141 Potassium 4.4 Chloride 105 Carbon Dioxide 29 Anion Gap 12 BUN 12 Creatinine 1.1 Est GFR ( Amer) > 60 Est GFR (Non-Af Amer) 58 Random Glucose 91 Calcium 8.9 Phosphorus 4.6 H Magnesium 2.1 Total Bilirubin 0.6 AST 45 H ALT 49 Alkaline Phosphatase 316 H Total Protein 6.7 Albumin 3.3 Globulin 3.4 Albumin/Globulin Ratio 1.0 L Hepatitis A IgM Ab Negative Hep Bs Antigen Negative Hep Bs Antibody Hep B Core IgM Ab Negative Hepatitis C Antibody Negative 01/13/18 01/13/18 07:30 07:30 WBC RBC Hgb Hct MCV MCH MCHC RDW Plt Count MPV Gran % Lymph % (Auto) [place] % (Auto) Eos % (Auto) Baso % (Auto) Gran # Lymph # (Auto) [place] # (Auto) Eos # (Auto) Baso # (Auto) Sodium Potassium Chloride Carbon Dioxide Anion Gap BUN Creatinine Est GFR ( Amer) Est GFR (Non-Af Amer) Random Glucose Calcium Phosphorus Magnesium Total Bilirubin AST ALT Alkaline Phosphatase Total Protein Albumin Globulin Albumin/Globulin Ratio Hepatitis A IgM Ab Hep Bs Antigen Negative Hep Bs Antibody Positive Hep B Core IgM Ab Hepatitis C Antibody Negative Assessment & Plan - Assessment and Plan (Free Text) Plan: Infectious Diseases Attending Physician Addendum Patient discussed with medical/surgery registered nurse. I have reviewed the pertinent clinical information for the patient, including history of present illness, medical, personal and social histories, lab results and imaging findings. I agree with the above findings, assessment and plan. In addition, will continue Vancomycin and Zosyn for patient with left upper arm severe skin and skin structure infection - for debridement this afternoon and will follow up OR findings, cultures and pathology. Will also add Clindamycin - R/O fasciitis. Will monitor clinically. Follow up HIV test.
[2018-01-13] MEDS ORDERED: Vancomycin 1gm in NS 250ml 1 GM/250 ML BAG IVPB SCH (10:00)
[2018-01-13] MEDS: Piperacillin/Tazobact 3.375 gm 100 ML IVPB SCH ×3 (11:06→23:26)
[2018-01-13] MEDS ORDERED: Piperacillin/Tazobact 3.375 gm 100 ML IVPB SCH (12:00)
[2018-01-13 12:15] LABS: HEPATITIS B SURFACE AG Negative (NEGATIVE)
[2018-01-13 12:18] LABS: HEPATITIS B SURFACE AG Negative (NEGATIVE)
[2018-01-13 12:21] LABS: HEPATITIS A IGM NEGATIVE (NEGATIVE); HEPATITIS B CORE AB NEGATIVE (NEGATIVE)
[2018-01-13] MEDS: Clindamycin 600mg/50ml D5W 600 MG/50 ML VIAL IVPB SCH ×2 (12:30→20:32)
[2018-01-13 12:33] LABS: HEPATITIS C ANTIBODY NEGATIVE (NEGATIVE)
[2018-01-13 12:35] LABS: HEPATITIS C ANTIBODY NEGATIVE (NEGATIVE)
[2018-01-13] MEDS ORDERED: Bupivacaine 0.5% Inj(30mL) ONE (14:36)
[2018-01-13 14:49] VITALS: O2SAT 97
[2018-01-13] MEDS ORDERED: Midazolam 2 MG/2 ML VIAL ONE (14:57)
[2018-01-13] MEDS ORDERED: Ketamine 10 mg/ml Inj (20 ml) ONE (14:58)
[2018-01-13] MEDS ORDERED: Propofol 10 mg/ml Inj (20 ML) ONE ×2 (15:10→15:11)
[2018-01-13] MEDS ORDERED: HYDROmorphone 1 mg/ml ISec IVP STA (15:20)
[2018-01-13] MEDS ORDERED: HYDROmorphone 0.5 mg/0.5 ml ISec IVP PRN (15:21)
--- NOTE | 2018-01-13 15:22 | PCM.SURG1 ---
Surgeon's Initial Post Op Note - Surgeon's Notes Surgeon: Dr. Viveros Hide And Skin Colerer: Dr. Lima PGY3 Type of Anesthesia: IV Sedation, Local Anesthesia Administered By: Dr. Sherman Pre-Operative Diagnosis: Left upper extremity abscess Operative Findings: See operative dictation Post-Operative Diagnosis: Left upper extremity abscess Operation Performed: Left upper extremity abscess debridment and washout Specimen/Specimens Removed: Necrotic tissue Estimated Blood Loss: EBL {In ML}: 1 Blood Products Given: N/A Drains Used: No Drains Post-Op Condition: Good Date of Surgery/Procedure: 01/13/18 Time of Surgery/Procedure: 15:21
[2018-01-13] MEDS ORDERED: HYDROmorphone 1 mg/ml ISec IVP ONE (15:23)
[2018-01-13] MEDS ORDERED: HYDROmorphone 1 mg/ml ISec ONE (15:23)
[2018-01-13] MEDS ORDERED: Lactated Ringer's 1,000 ML IV SCH (15:30)
[2018-01-13] MEDS ORDERED: HYDROmorphone 0.5 mg/0.5 ml ISec ONE (15:53)
[2018-01-13 17:03] VITALS: BP 121/76; PULSE 70; RESP 20; TEMP 97
[2018-01-13] MEDS: Lactobacillus Acidophilus 500 MU Cap PO SCH (17:50)
[2018-01-13] MEDS ORDERED: DiphenhydrAMINE 50 mg/ml Inj IVP ONE (21:00)
[2018-01-14] MEDS: Sodium Chloride 0.9% 1,000 ML IV SCH ×2 (01:00→10:46)
[2018-01-14] MEDS: Clindamycin 600mg/50ml D5W 600 MG/50 ML VIAL IVPB SCH ×2 (03:16→10:43)
[2018-01-14] MEDS: Piperacillin/Tazobact 3.375 gm 100 ML IVPB SCH (05:57)
[2018-01-14] MEDS: Vancomycin 1gm in NS 250ml 1 GM/250 ML BAG IVPB SCH (05:58)
[2018-01-14 09:08] LABS: BASO # 0.02 K/mm3 (0.0-2.0); BASO % 0.4 % (0.0-3.0); EOS # 0.4 (0.0-0.7); EOS % 7.2 % (1.5-5.0); GRAN # 3.06 (1.4-6.5); HEMOGLOBIN 10.5 g/dL (12.0-16.0); LYMPH # 1.9 (1.2-3.4); LYMPH % 32.8 % (22.0-35.0); MEAN CELL VOLUME 85.5 fl (80.0-105.0); MEAN CORPUSCULAR HEMOGLOBIN 27.6 pg (25.0-35.0); MEAN CORPUSCULAR HGB CONC 32.3 g/dl (31.0-37.0); MEAN PLATELET VOLUME 9.8 fl (7.0-11.0); MONO # 0.3 (0.1-0.6); MONO % 5.6 % (1.0-6.0); RBC 3.8 10^6/uL (3.5-6.1); RED CELL DISTRIBUTION WIDTH 13.1 % (11.5-14.5); WHITE BLOOD COUNT 5.7 10^3/ul (4.5-11.0)
[2018-01-14] MEDS: Lactobacillus Acidophilus 500 MU Cap PO SCH (09:35)
[2018-01-14 09:55] LABS: ALT/SGPT 50 U/L (7-56); AST/SGOT 33 U/L (14-36); BLOOD UREA NITROGEN 11 mg/dL (7-21); GFR NON-AFRICAN AMERICAN > 60
--- NOTE | 2018-01-14 11:59 | CP.PCM.PN ---
Subjective - Date & Time of Evaluation Date of Evaluation: 01/14/18 Time of Evaluation: 11:56 - Subjective Subjective: General Surgery Progress Note for Dr. Greco This 32F was seen and examined this AM at bedside no acute events overnight. She reports that her arm pain is significantly improved since the OR. She denies any chest pain or SOB. Packing and dressing changed this AM durring rounds. Objective - Vital Signs/Intake and Output Vital Signs (last 24 hours): Temp Pulse Resp BP Pulse Ox 97.0 F L 70 20 121/76 97 01/13/18 17:02 01/13/18 17:02 01/13/18 17:02 01/13/18 17:02 01/13/18 17:02 Intake and Output: 01/14/18 01/14/18 06:59 18:59 Intake Total 3480 Balance 3480 - Medications Medications: Current Medications Alprazolam (Xanax) 1 mg PO Q6 PRN; Protocol PRN Reason: Anxiety Last Admin: 01/14/18 09:37 Dose: 1 mg Sodium Chloride (Sodium Chloride 0.9%) 1,000 mls @ 125 mls/hr IV .Q8H [facility] Last Admin: 01/14/18 10:46 Dose: 125 mls/hr Vancomycin HCl (Vancomycin 1gm) 1 gm in 250 mls @ 167 mls/hr IVPB Q12H [facility] PRN Reason: Protocol Last Admin: 01/14/18 05:58 Dose: 167 mls/hr Piperacillin Sod/Tazobactam Sod (Zosyn 3.375 In Ns 100ml) 100 mls @ 200 mls/hr IVPB Q6 [facility] PRN Reason: Protocol Last Admin: 01/14/18 05:57 Dose: 200 mls/hr Clindamycin Phosphate (Cleocin) 600 mg in 50 mls @ 50 mls/hr IVPB Q8H [facility] PRN Reason: Protocol Stop: 01/18/18 11:31 Last Admin: 01/14/18 10:43 Dose: 50 mls/hr Lactobacillus Acidophilus (Bacid Acidophilus) 1 cap PO BID [facility] Last Admin: 01/14/18 09:35 Dose: 1 cap Nicotine (Nicoderm Cq) 1 patch TD DAILY [facility] Last Admin: 01/14/18 09:36 Dose: 1 patch Tramadol HCl (Ultram) 50 mg PO Q6 PRN PRN Reason: Pain, moderate (4-7) Last Admin: 01/14/18 09:36 Dose: 50 mg - Labs Labs: 01/14/18 08:50 01/14/18 08:50 - Constitutional Appears: Non-toxic, No Acute Distress - Head Exam Head Exam: ATRAUMATIC, NORMOCEPHALIC - Eye Exam Eye Exam: EOMI, Normal appearance - ENT Exam ENT Exam: Mucous Membranes Moist - Respiratory Exam Respiratory Exam: NORMAL BREATHING PATTERN - Cardiovascular Exam Cardiovascular Exam: +S1, +S2 - GI/Abdominal Exam GI & Abdominal Exam: Soft. absent: Tenderness - Extremities Exam Additional comments: Wound bed with fibrinous exhudate no more foul smelling purulence. - Neurological Exam Neurological Exam: Alert, Awake Assessment and Plan - Assessment and Plan (Free Text) Assessment: 32F with LUE anscess POD1 s/p debridment and doing well Daily packing/dressing changes continue abx Further recs per Dr. Angus Lima PGY3
--- NOTE | 2018-01-14 12:31 | CP.PCM.DIS ---
Provider - Provider Date of Admission: 01/13/18 00:16 Attending physician: Luly Fernandez DO Consults: Dr. Felice Faust Time Spent in preparation of Discharge (in minutes): 35 Hospital Course - Lab Results Lab Results: Micro Results 01/13/18 18:13 Other: Please Indicate Gram Stain - Final 01/13/18 18:13 Other: Please Indicate Wound Culture - Preliminary Gram Negative Ji Gram Positive Cocci 01/13/18 00:34 Arm - Left Gram Stain - Final 01/13/18 00:34 Arm - Left Wound Culture - Preliminary Gram Negative Ji Gram Positive Cocci Most Recent Lab Values WBC 5.7 10^3/ul (4.5-11.0) 01/14/18 08:50 RBC 3.80 10^6/uL (3.5-6.1) 01/14/18 08:50 Hgb 10.5 g/dL (12.0-16.0) L 01/14/18 08:50 Hct 32.5 % (36.0-48.0) L 01/14/18 08:50 MCV 85.5 fl (80.0-105.0) 01/14/18 08:50 MCH 27.6 pg (25.0-35.0) 01/14/18 08:50 MCHC 32.3 g/dl (31.0-37.0) 01/14/18 08:50 RDW 13.1 % (11.5-14.5) 01/14/18 08:50 Plt Count 273 10^3/uL (120.0-450.0) 01/14/18 08:50 MPV 9.8 fl (7.0-11.0) 01/14/18 08:50 Gran % 54.0 % (50.0-68.0) 01/14/18 08:50 Lymph % (Auto) 32.8 % (22.0-35.0) 01/14/18 08:50 Mcdonough % (Auto) 5.6 % (1.0-6.0) 01/14/18 08:50 Eos % (Auto) 7.2 % (1.5-5.0) H 01/14/18 08:50 Baso % (Auto) 0.4 % (0.0-3.0) 01/14/18 08:50 Gran # 3.06 (1.4-6.5) 01/14/18 08:50 Lymph # (Auto) 1.9 (1.2-3.4) 01/14/18 08:50 Mcdonough # (Auto) 0.3 (0.1-0.6) 01/14/18 08:50 Eos # (Auto) 0.4 (0.0-0.7) 01/14/18 08:50 Baso # (Auto) 0.02 K/mm3 (0.0-2.0) 01/14/18 08:50 Sodium 140 mmol/L (132-148) 01/14/18 08:50 Potassium 4.3 mmol/L (3.6-5.0) 01/14/18 08:50 Chloride 107 mmol/L (98-107) 01/14/18 08:50 Carbon Dioxide 27 mmol/L (21-33) 01/14/18 08:50 Anion Gap 11 (10-20) 01/14/18 08:50 BUN 11 mg/dL (7-21) 01/14/18 08:50 Creatinine 0.7 mg/dl (0.7-1.2) 01/14/18 08:50 Est GFR ( Amer) > 60 01/14/18 08:50 Est GFR (Non-Af Amer) > 60 01/14/18 08:50 Random Glucose 84 mg/dL (70-110) 01/14/18 08:50 Calcium 9.0 mg/dL (8.4-10.5) 01/14/18 08:50 Phosphorus 4.3 mg/dL (2.5-4.5) 01/14/18 08:50 Magnesium 2.0 mg/dL (1.7-2.2) 01/14/18 08:50 Total Bilirubin 0.8 mg/dL (0.2-1.3) 01/14/18 08:50 AST 33 U/L (14-36) 01/14/18 08:50 ALT 50 U/L (7-56) 01/14/18 08:50 Alkaline Phosphatase 318 U/L (38-126) H 01/14/18 08:50 Total Protein 6.0 g/dL (5.8-8.3) 01/14/18 08:50 Albumin 3.0 g/dL (3.0-4.8) 01/14/18 08:50 Globulin 3.0 gm/dL 01/14/18 08:50 Albumin/Globulin Ratio 1.0 (1.1-1.8) L 01/14/18 08:50 Hepatitis A IgM Ab Negative (NEGATIVE) 01/13/18 04:10 Hep Bs Antigen Negative (NEGATIVE) 01/13/18 07:30 Hep Bs Antibody Positive (NEGATIVE) 01/13/18 07:30 Hep B Core Total Ab Reactive (Non Reactive) H 01/13/18 07:00 Hep B Core IgM Ab Negative (NEGATIVE) 01/13/18 04:10 Hepatitis C Antibody Negative (NEGATIVE) 01/13/18 07:30 HIV-1 Antibody TEST NOT PERFORMED 01/13/18 07:00 HIV-2 Antibody TEST NOT PERFORMED 01/13/18 07:00 HIV 1&2 Ag/Ab, 4th Gen Nonreactive (Nonreactive) 01/13/18 07:00 - Hospital Course Hospital Course: Orly Crockett, PGY-[address] 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 She admitted to using IV heroin in the affected region. She was started on IV antibiotics with surgery and ID consulted. Surgery took the patient to the OR for incision and drainage and removal of the necrotic tissue the day after her admission. Blood cultures were negative while wound cultures grew gram positive cocci and gram negative rods greater than 100,000 CFU. On POD 1, the patient signed out against AMA with the risk of leaving being worsening of any known or unknown medical condition, loss of limb, permanent disability, and . The patient was afebrile during the entirety of her stay. She was signed out against medical medical advice and was given PO Bactrim for five days per ID recommendations. - Date & Time of H&P Date of H&P: 01/14/18 Time of H&P: 12:45 Discharge Exam - Head Exam Head Exam: ATRAUMATIC, NORMOCEPHALIC - Eye Exam Eye Exam: EOMI, Normal appearance - ENT Exam ENT Exam: Mucous Membranes Moist, Normal Oropharynx - Neck Exam Neck exam: Normal Inspection - Respiratory Exam Respiratory Exam: NORMAL BREATHING PATTERN - Cardiovascular Exam Cardiovascular Exam: RRR, +S1, +S2 - GI/Abdominal Exam GI & Abdominal Exam: Normal Bowel Sounds - Extremities Exam Additional comments: left upper extremity is wrapped with dressing intact - Back Exam Back exam: absent: CVA tenderness (L), CVA tenderness (R) - Neurological Exam Neurological exam: Alert, CN II-XII Intact, Oriented x3 - Psychiatric Exam Psychiatric exam: Normal Affect, Normal Mood - Skin Additional comments: left arm shows stretch salas Discharge Plan - Follow Up Plan Condition: FAIR Disposition: AGAINST MEDICAL ADVICE Instructions: Abscess (GEN)
--- NOTE | 2018-01-14 12:41 | PN ---
DATE: 01/14/2018 SUBJECTIVE: The patient is in bed, was seen earlier this morning. No fevers and chills. PHYSICAL EXAMINATION: VITAL SIGNS: On exam, temperature is 98, blood pressure is 120/70, respiratory rate of 20. HEENT: Examination of HEENT is unremarkable. NECK: Supple. LUNGS: Have decreased breath sounds. HEART: Normal S1, S2. ABDOMEN: Soft, nontender. LABORATORY DATA: Laboratory examination reveals a white count of 5.7, hemoglobin of 10, platelets of 273. BUN of 11, creatinine 0.7. Hepatitis profile is noted. Cultures are noted. Gram negative evi and gram-positive cocci. Review of orders reveals the patient to be on vancomycin and Zosyn. The blood cultures are negative. ASSESSMENT AND PLAN: A 32-year-old female with history of intravenous drug abuse and hepatitis B, asthma, intravenous drug abuse. Admitted with a left upper extremity abscess, status post drainage. Waiting for cultures. Should have an human immunodeficiency virus test, which is reported to be negative. Bernardino Faust MD
--- NOTE | 2018-01-15 | CP.PCM.PCO ---
Physician Communication Note - Physician Communication Note Physician Communication Note: Pt signed AMA wo Rx/wound packed w DSD only
--- NOTE | 2018-01-16 11:53 | OP ---
PROCEDURE DATE: 01/13/2018 She is admitted on 01/13/2018, operated on 01/13/2018. SURGEON: Noe Viveros MD. USER EXPERIENCE LEAD: Gael Land DO, PGY-3. PROFESSOR OF BIOLOGICAL SCIENCES: Chavo Sherman MD. ANESTHESIA: IV sedation - Marcaine 0.5 - 15 mL. PREOPERATIVE DIAGNOSES: 1. Left shoulder abscess with necrosis. 2. Hepatitis B virus. 3. Toxoplasmosis. 4. Heroin addiction. POSTOPERATIVE DIAGNOSES: 1. Left shoulder abscess with necrosis. 2. Hepatitis B virus. 3. Toxoplasmosis. 4. Heroin addiction. PATHOLOGY: Pending. PROCEDURE: Debridement of the left upper extremity - shoulder (4 x 5 cm). OPERATIVE INDICATION: The patient is a 32-year-old female, on methadone with checkered medical history including hepatitis B and toxoplasmosis, who injected her shoulder and developed a significant necrotic abscess. In the emergency room, she was initially treated and consultation obtained with Dr. Greco from the Surgery Department, but due to significant problems in coming to the OR on the afternoon of 01/13/2018, the OR and Dr. Greco requested a backup with Dr. Viveros, who came, consulted the patient and discussed the procedure with her and stepped in Dr. Greco's place to help remove the infected source. Risks, benefits and alternatives with their anticipated outcomes were discussed with the patient. She is fully aware she will be sedated and given local anesthetic as well. OPERATIVE NOTE: The patient is brought from the same-day holding area to the operating room, undergoes time-out procedure and is identified by her wrist band. Following this, she is placed on the operative table in a supine manner and undergoes intravenous sedation with oxygenation monitoring by the anesthesiologist. Following adequate sedation, the shoulder is now prepped with Betadine and the patient is aseptically draped. The area surrounding the entire wound has been infiltrated with the long-acting bupivacaine and following this, cultures are taken aerobically and anaerobically of the wounds and a specimen of the necrotic tissue that is now removed with the cautery scalpel is also placed in the culture device. The initial report from Microbiology is gram positive evi and 2 gram-negative cocci. The wound is lavaged with the pulse evacuator and found to be completely clean. Hemostasis is contained with 1-inch Iodoform gauze and a dry dressing placed over that with MediPort tape and the patient is then awakened, transported to the recovery room in a satisfactory condition. Sponge, instrument and suture count are verified as correct at the end of the procedure. Estimated blood loss during this procedure was less than 15 mL of blood. Sponge, instrument and suture count were noted as correct at the end of the procedure. This dictation will be electronically signed without being read. The surgical scheduler was present throughout the entire procedure and will be very necessary during the procedure for the exposure and cleansing of this entire wound. Noe Viveros MD
== END 2018-01-14 12:23 | disposition left against medical advice (07) | DRG 603 ==
LOC: ED 22:25 → ERH 01-13 00:16 → 3RSO 01-13 03:13
PROVIDERS: ADMIT Hospitalist; ATTEND Hospitalist
PROC: 3E0234Z Introduction of Serum, Toxoid and Vaccine into Muscle, Percutaneous Approach (ICD-10-PCS; 2018-01-12)
PROC: 0HBCXZZ Excision of Left Upper Arm Skin, External Approach (ICD-10-PCS; principal; 2018-01-13 14:00)
DX: L02.414 Cutaneous abscess of left upper limb (principal); B19.10 Unspecified viral hepatitis B without hepatic coma; B58.9 Toxoplasmosis, unspecified; F11.20 Opioid dependence, uncomplicated; J45.909 Unspecified asthma, uncomplicated; F17.210 Nicotine dependence, cigarettes, uncomplicated; F41.9 Anxiety disorder, unspecified; F32.89 Other specified depressive episodes; Z23 Encounter for immunization; Z87.440 Personal history of urinary (tract) infections